=== PATIENT | male | born 1985 | race Caucasian/White ===

== ENCOUNTER 2016-12-26 07:19 | Emergency (ER) | payer OTHER ==
--- NOTE | 2016-12-26 07:27 | EDM.PDOC ---
ED HPI GENERAL MEDICAL PROBLEM - General Chief Complaint: ENT Problem Stated Complaint: TOOTH PAIN Time Seen by Provider: 12/26/16 07:25 - History of Present Illness INITIAL COMMENTS - FREE TEXT/NARRATIVE: HISTORY AND PHYSICAL: History of present illness: Patient 31-year-old white male presents with a concern of dental pain and swelling this is his left lower molar he denies other concern there's been no fever no chills no trouble breathing he's had similar complaints in the past and has sought dental care he is planning on definitive evaluation treatment with dentist this week Review of systems: As per history of present illness and below otherwise all systems reviewed and negative. Past medical history: As per history of present illness and as reviewed below otherwise noncontributory. Surgical history: As per history of present illness and as reviewed below otherwise noncontributory. Social history: No reported history of drug or alcohol abuse. Family history: As per history of present illness and as reviewed below otherwise noncontributory. Physical exam: HEENT: Atraumatic, normocephalic, pupils reactive, negative for conjunctival pallor or scleral icterus, mucous membranes moist, throat clear, neck supple, nontender, trachea midline. Multiple dental caries noted left mandibular swelling noted in the region of the left lower molar Lungs: Clear to auscultation, breath sounds equal bilaterally, chest nontender. Heart: S1S2, regular, negative for clicks, rubs, or JVD. Abdomen: Soft, nondistended, nontender. Negative for masses or hepatosplenomegaly. Negative for costovertebral tenderness. Pelvis: Stable nontender. Genitourinary: Deferred. Rectal: Deferred. Extremities: Atraumatic, negative for cords or calf pain. Neurovascular unremarkable. Neuro: Awake, alert, oriented. Cranial nerves II through XII unremarkable. Cerebellum unremarkable. Motor and sensory unremarkable throughout. Exam nonfocal. Diagnostics: None Therapeutics: None Impression: #1 dentalgia #2 dental abscess #3 dental caries Definitive disposition and diagnosis as appropriate pending reevaluation and review of above. - Related Data Allergies Allergy/AdvReac Type Severity Reaction Status Date / Time No Known Allergies Allergy Verified 12/26/16 07:23 Home Meds: Home Meds . [No Known Home Meds] 12/05/15 [History] Past Medical History - Past Health History Medical/Surgical History: Denies Medical/Surgical History HEENT History: Reports: None Cardiovascular History: Reports: None Respiratory History: Reports: Bronchitis, Recurrent Gastrointestinal History: Reports: None Genitourinary History: Reports: None Musculoskeletal History: Reports: None Neurological History: Reports: Other (See Below) Other Neuro History: bells palsy Psychiatric History: Reports: None Endocrine/Metabolic History: Reports: None Hematologic History: Reports: None Immunologic History: Reports: None Dermatologic History: Reports: None - Infectious Disease History Infectious Disease History: Reports: None - Past Surgical History Head Surgeries/Procedures: Reports: None HEENT Surgical History: Reports: None Cardiovascular Surgical History: Reports: None Respiratory Surgical History: Reports: None GI Surgical History: Reports: None Male Surgical History: Reports: None Musculoskeletal Surgical History: Reports: None Social & Family History - Tobacco Use Smoking Status *Q: Current Every Day Smoker Years of Tobacco use: 11 Packs/Tins Daily: 1 - Caffeine Use Caffeine Use: Reports: None - Alcohol Use Days Per Week of Alcohol Use: 2 Number of Drinks Per Day: 5 Total Drinks Per Week: 10 - Recreational Drug Use Recreational Drug Use: No ED ROS GENERAL - Review of Systems Review Of Systems: ROS reveals no pertinent complaints other than HPI. ED EXAM, GENERAL - Physical Exam Exam: See Below (Dictated) Departure - Departure Time of Disposition: 07:26 Disposition: Home, Self-Care 01 Condition: Good Clinical Impression: Dental caries, Dental abscess, Dentalgia - Discharge Information Referrals: PCP,None [Primary Care Provider] - Additional Instructions: The following information is given to patients seen in the emergency department who are being discharged to home. This information is to outline your options for follow-up care. We provide all patients seen in our emergency department with a follow-up referral. The need for follow-up, as well as the timing and circumstances, are variable depending upon the specifics of your emergency department visit. If you don't have a primary care physician on staff, we will provide you with a referral. We always advise you to contact your personal physician following an emergency department visit to inform them of the circumstance of the visit and for follow-up with them and/or the need for any referrals to a consulting specialist. The emergency department will also refer you to a specialist when appropriate. This referral assures that you have the opportunity for followup care with a specialist. All of these measure are taken in an effort to provide you with optimal care, which includes your followup. Under all circumstances we always encourage you to contact your private physician who remains a resource for coordinating your care. When calling for followup care, please make the office aware that this follow-up is from your recent emergency room visit. If for any reason you are refused follow-up, please contact the [facility] emergency department at and asked to speak to the emergency department charge nurse. Pen-Vee K as prescribed Motrin/Tylenol as directed follow-up dentist as discussed and return as needed as discussed
[2016-12-26 07:29] VITALS: BP 139/78
== END 2016-12-26 07:40 | disposition home or self-care (01) ==
LOC: MW.ED 07:19
DX: K04.7 Periapical abscess without sinus (principal); K02.9 Dental caries, unspecified; F17.210 Nicotine dependence, cigarettes, uncomplicated
CPT/HCPCS: 99282

== ENCOUNTER 2017-01-24 01:06 | Emergency (ER) | payer OTHER ==
[2017-01-24] MEDS ORDERED: Aspirin 81 MG Tab.Chew PO ONE (01:36)
--- NOTE | 2017-01-24 01:41 | EDM.PDOC ---
ED HPI GENERAL MEDICAL PROBLEM - General Chief Complaint: Chest Pain Stated Complaint: CHEST PAIN; LEFT ARM NUMB Time Seen by Provider: 01/24/17 01:28 - History of Present Illness INITIAL COMMENTS - FREE TEXT/NARRATIVE: HISTORY AND PHYSICAL: History of present illness: The patient is a 31-year-old male with no stated medical problems who says that he ate a normal day today and ate chili about 6 or 7 PM and then went to bed and suddenly woke up at about midnight with a fullness and chest pressure in the middle lower part of his sternum that he rates as 7/10. He initially told the nurse it was a 10 over 10 when I gave him my pain scale he now rates it as a 7/10. At that point he was not nauseated he had no stomach pain he had no diaphoresis or shortness of breath. The pain did not radiate and he had no numbness or tingling in his extremities at that time. He says he took Tums and went back to sleep but couldn't sleep and woke with similar pain area he's had it constantly since midnight, 1.5 hours. He says that in that last hour he has had some numbness and tingling that was at his left upper shoulder area as well as his left hand but not his elbow or forearm area. The tingling and numbness has since subsided and he does not have any weakness nor did he have any weakness in that arm. There was no pain in the left upper extremity just the tingling in the skip distribution as described above. Patient currently states his pain is a 1/10 and he did not take any other medications. The patient does smoke cigarettes but denies drug use and only drinks rarely. Patient has no GI cardiac or pulmonary history and he has no significant family history other than a mother who has atrial fibrillation. He does not know his cholesterol lipid panel and does not have a provider. Patient denies any recent upper respiratory symptoms and has had no trauma. Patient denies any history of chest pain with activities in the past and he has no leg pain swelling or asymmetry. Patient does admit to me that he has had more issues with his "heartburn" that he gets with pizza and other foods and it has been occurring more with certain food triggers. He has not sought evaluation of that. The patient denies any headache or neck pain and has no history of head or neck problems. Review of systems: As per history of present illness and below otherwise all systems reviewed and negative. Past medical history: As per history of present illness and as reviewed below otherwise noncontributory. Surgical history: As per history of present illness and as reviewed below otherwise noncontributory. Social history: No reported history of drug or alcohol abuse. Family history: As per history of present illness and as reviewed below otherwise noncontributory. Physical exam: Gen.: Well-developed well-nourished man who is nontoxic and speaking clearly and easily in the ED. He is mildly overweight and vitals of been reviewed by me HEENT: Atraumatic, normocephalic, pupils reactive, negative for conjunctival pallor or scleral icterus, mucous membranes moist, throat clear, neck supple, nontender, trachea midline. Lungs: Clear to auscultation, breath sounds equal bilaterally, chest nontender. Heart: S1S2, regular, negative for clicks, rubs, or JVD. Abdomen: Soft, nondistended, nontender. Negative for masses or hepatosplenomegaly. Negative for costovertebral tenderness. Pelvis: Stable nontender. Genitourinary: Deferred. Rectal: Deferred. Extremities: Atraumatic, negative for cords or calf pain. Neurovascular unremarkable. No pedal edema or leg asymmetry Neuro: Awake, alert, oriented. Cranial nerves II through XII unremarkable. Cerebellum unremarkable. Motor and sensory unremarkable throughout. Exam nonfocal. Diagnostics: EKG chest x-ray CBC CMP INR troponin Therapeutics: IV O2 monitor aspirin Patient is aware of all testing results and I have advised him for 23 hour observation for serial EKGs enzymes and cardiac monitoring and he defers that at this time. He understands the risks and accepts them and would like to follow -up in our clinic. I will give him information for that. Impression: Atypical chest pain resolved, nonspecific skip distribution paresthesia of left upper extremity resolved Definitive disposition and diagnosis as appropriate pending reevaluation and review of above. Left Upper Chest Pain Score (Numeric/FACES): 5 - Related Data Allergies Allergy/AdvReac Type Severity Reaction Status Date / Time No Known Allergies Allergy Verified 12/26/16 07:23 Home Meds: Home Meds . [No Known Home Meds] 12/05/15 [History] Past Medical History - Past Health History Medical/Surgical History: Denies Medical/Surgical History HEENT History: Reports: None Cardiovascular History: Reports: Other (See Below) Other Cardiovascular History: "chest pain" Respiratory History: Reports: Bronchitis, Recurrent Gastrointestinal History: Reports: None Genitourinary History: Reports: None Musculoskeletal History: Reports: None Neurological History: Reports: Other (See Below) Other Neuro History: bells palsy Psychiatric History: Reports: None Endocrine/Metabolic History: Reports: None Hematologic History: Reports: None Immunologic History: Reports: None Dermatologic History: Reports: None - Infectious Disease History Infectious Disease History: Reports: None - Past Surgical History Head Surgeries/Procedures: Reports: None HEENT Surgical History: Reports: None Cardiovascular Surgical History: Reports: None Respiratory Surgical History: Reports: None GI Surgical History: Reports: None Male Surgical History: Reports: None Musculoskeletal Surgical History: Reports: None Social & Family History - Tobacco Use Smoking Status *Q: Current Every Day Smoker Years of Tobacco use: 12 Packs/Tins Daily: 0.7 - Caffeine Use Caffeine Use: Reports: Coffee - Alcohol Use Days Per Week of Alcohol Use: 2 Number of Drinks Per Day: 5 Total Drinks Per Week: 10 - Recreational Drug Use Recreational Drug Use: Yes Drug Use in Last 12 Months: No Recreational Drug Type: Reports: Marijuana/Hashish Recreational Drug Use Frequency: Not Used In Over 1 Year ED ROS GENERAL - Review of Systems Review Of Systems: ROS reveals no pertinent complaints other than HPI. ED EXAM, GENERAL - Physical Exam Exam: See Below (see dictation) Course - Vital Signs Last Recorded V/S: Last Vital Signs Temp 36.2 C 01/24/17 01:17 Pulse 85 01/24/17 01:17 Resp 16 01/24/17 01:17 BP 144/95 H 01/24/17 01:17 Pulse Ox 99 01/24/17 01:17 - Orders/Labs/Meds Orders: Active Orders 24 hr Category Date Time Status EKG 12 Lead [EKG Documentation Completion] [RC] STAT Care 01/24/17 01:19 Active CXR [Chest 1V Frontal] [CR] Stat Exams 01/24/17 01:21 Taken Labs: Laboratory Tests 01/24/17 01/24/17 01/24/17 Range/Units 01:13 01:13 01:13 WBC 9.23 (4.0-11.0) K/uL RBC 5.10 (4.50-5.90) M/uL Hgb 16.0 (13.0-17.0) g/dL Hct 46.1 (38.0-50.0) % MCV 90.4 (80.0-98.0) fL MCH 31.4 (27.0-32.0) pg MCHC 34.7 (31.0-37.0) g/dL RDW Std Deviation 40.6 (28.0-62.0) fl RDW Coeff of Ran 13 (11.0-15.0) % Plt Count 180 (150-400) K/uL MPV 12.50 H (7.40-12.00) fL Neut % (Auto) 45.6 L (48.0-80.0) % Lymph % (Auto) 37.8 (16.0-40.0) % [place] % (Auto) 11.6 (0.0-15.0) % Eos % (Auto) 4.8 (0.0-7.0) % Baso % (Auto) 0.2 (0.0-1.5) % Neut # (Auto) 4.2 (1.4-5.7) K/uL Lymph # (Auto) 3.5 H (0.6-2.4) K/uL [place] # (Auto) 1.1 H (0.0-0.8) K/uL Eos # (Auto) 0.4 (0.0-0.7) K/uL Baso # (Auto) 0.0 (0.0-0.1) K/uL INR 0.94 (0.86-1.11) Sodium 140 (136-146) mmol/L Potassium 4.1 (3.5-5.1) mmol/L Chloride 110 (98-110) mmol/L Carbon Dioxide 20 L (21-31) mmol/L BUN 13 (6.0-23.0) mg/dL Creatinine 1.1 (0.6-1.5) mg/dL Est Cr Clr Drug Dosing 106.80 mL/min Estimated GFR (MDRD) > 60.0 ml/min Glucose 114 H (60-110) mg/dL Calcium 9.2 (8.8-10.8) mg/dL Total Bilirubin 0.3 (0.1-1.5) mg/dL AST 29 (5-40) IU/L ALT 43 (8-54) IU/L Alkaline Phosphatase 76 (40-150) Troponin I (0.0-0.29) NG/ML Total Protein 7.1 (6.0-8.0) g/dL Albumin 4.0 (3.5-5.0) g/dL Globulin 3.1 (2.0-3.5) g/dL Albumin/Globulin Ratio 1.3 (1.3-2.8) 01/24/17 Range/Units 01:13 WBC (4.0-11.0) K/uL RBC (4.50-5.90) M/uL Hgb (13.0-17.0) g/dL Hct (38.0-50.0) % MCV (80.0-98.0) fL MCH (27.0-32.0) pg MCHC (31.0-37.0) g/dL RDW Std Deviation (28.0-62.0) fl RDW Coeff of Ran (11.0-15.0) % Plt Count (150-400) K/uL MPV (7.40-12.00) fL Neut % (Auto) (48.0-80.0) % Lymph % (Auto) (16.0-40.0) % [place] % (Auto) (0.0-15.0) % Eos % (Auto) (0.0-7.0) % Baso % (Auto) (0.0-1.5) % Neut # (Auto) (1.4-5.7) K/uL Lymph # (Auto) (0.6-2.4) K/uL [place] # (Auto) (0.0-0.8) K/uL Eos # (Auto) (0.0-0.7) K/uL Baso # (Auto) (0.0-0.1) K/uL INR (0.86-1.11) Sodium (136-146) mmol/L Potassium (3.5-5.1) mmol/L Chloride (98-110) mmol/L Carbon Dioxide (21-31) mmol/L BUN (6.0-23.0) mg/dL Creatinine (0.6-1.5) mg/dL Est Cr Clr Drug Dosing mL/min Estimated GFR (MDRD) ml/min Glucose (60-110) mg/dL Calcium (8.8-10.8) mg/dL Total Bilirubin (0.1-1.5) mg/dL AST (5-40) IU/L ALT (8-54) IU/L Alkaline Phosphatase (40-150) Troponin I < 0.10 (0.0-0.29) NG/ML Total Protein (6.0-8.0) g/dL Albumin (3.5-5.0) g/dL Globulin (2.0-3.5) g/dL Albumin/Globulin Ratio (1.3-2.8) Meds: Medications Discontinued Medications Generic Name Dose Route Start Last Admin Trade Name Freq PRN Reason Stop Dose Admin Aspirin 324 mg 01/24/17 01:36 Aspirin PO 01/24/17 01:37 ONETIME ONE Departure - Departure Time of Disposition: 02:11 Disposition: Home, Self-Care 01 Condition: Good Clinical Impression: Paresthesia Chest pain Qualifiers: Chest pain type: other chest pain Qualified Code(s): R07.89 - Other chest pain ; R07.8 - Other chest pain - Discharge Information Referrals: PCP,None [Primary Care Provider] - Forms: ED Department Discharge Additional Instructions: The following information is given to patients seen in the emergency department who are being discharged to home. This information is to outline your options for follow-up care. We provide all patients seen in our emergency department with a follow-up referral. The need for follow-up, as well as the timing and circumstances, are variable depending upon the specifics of your emergency department visit. If you don't have a primary care physician on staff, we will provide you with a referral. We always advise you to contact your personal physician following an emergency department visit to inform them of the circumstance of the visit and for follow-up with them and/or the need for any referrals to a consulting specialist. The emergency department will also refer you to a specialist when appropriate. This referral assures that you have the opportunity for followup care with a specialist. All of these measure are taken in an effort to provide you with optimal care, which includes your followup. Under all circumstances we always encourage you to contact your private physician who remains a resource for coordinating your care. When calling for followup care, please make the office aware that this follow-up is from your recent emergency room visit. If for any reason you are refused follow-up, please contact the [facility] emergency department at and ask to speak to the emergency department charge nurse. [facility] Primary care- Internal Medicine and Family [address] [address] Please call the clinic at 8 AM in the morning to ask for an expedited ER appointment as we discussed. Please try to monitor your food intake avoiding fatty foods and spicy foods fast foods as we discussed. Decrease caffeine intake. Please return to ER as needed and as we discussed. Please take a 325 enteric-coated aspirin every day until you're followed up in the clinic. - My Orders Last 24 Hours: My Active Orders 01/24/17 01:19 EKG 12 Lead [EKG Documentation Completion] [RC] STAT 01/24/17 01:21 CXR [Chest 1V Frontal] [CR] Stat - Assessment/Plan Last 24 Hours: My Active Orders 01/24/17 01:19 EKG 12 Lead [EKG Documentation Completion] [RC] STAT 01/24/17 01:21 CXR [Chest 1V Frontal] [CR] Stat
[2017-01-24 01:44] LABS: CHLORIDE,CL 110 mmol/L (98-110); SODIUM,NA 140 mmol/L (136-146)
[2017-01-24 02:14] VITALS: BP 151/103
--- NOTE | 2017-01-24 14:34 | CR ---
EXAM DATE: 01/24/17 PATIENT'S AGE: 31 Patient: KENRICK HERNANDEZ Facility: [place], [place] Site . Site : 1985 Study: XRay Chest [id number] 1:35:28 AM Ordering Physician: Doctor Valdez Final Report: INDICATION: Chest pain TECHNIQUE: Chest radiograph 1 views COMPARISON: 04/03/2016 FINDINGS: Cardiovascular and mediastinum: The cardiac silhouette is normal in appearance and size. Mediastinum is within normal limits. Lungs and pleural spaces: Both lungs are unremarkable in appearance. No sign of pleural effusion. No pneumothorax is seen. Bones and soft tissues: No significant findings. IMPRESSION: 1. No acute cardiopulmonary disease seen. Dictated by: Matt Rose MD @ 01/24/2017 01:41:16 (Electronic Signature) Report Signed by Proxy. [facility]ICH[facility] NO[facility]IAL HOSPITALMathew
== END 2017-01-24 02:21 | disposition home or self-care (01) ==
LOC: MW.ED 01:06
DX: R07.89 Other chest pain (principal); R20.2 Paresthesia of skin; F17.210 Nicotine dependence, cigarettes, uncomplicated
CPT/HCPCS: 71010; 80053; 84484; 85025; 85610; 93005; 99285; A9270; 99284

== ENCOUNTER 2017-07-17 00:34 | Emergency (ER) | payer OTHER ==
[2017-07-17] MEDS ORDERED: Albuterol/Ipratropium 3.0-0.5 MG/3 ML Neb Soln NEB ONE (00:56)
--- NOTE | 2017-07-17 01:11 | EDM.PDOC ---
ED HPI GENERAL MEDICAL PROBLEM - General Chief Complaint: Respiratory Problem Stated Complaint: PT HAS COUGH Time Seen by Provider: 07/17/17 01:10 Source of Information: Reports: Patient - History of Present Illness INITIAL COMMENTS - FREE TEXT/NARRATIVE: HISTORY AND PHYSICAL: History of present illness: [Patient presents with one week of cough increasing in severity cough is keeping him awake at night no fever nausea vomiting chills sweats some sore throat he does have smoking history half pack daily since a teenager no fever nausea vomiting chills sweats ] Review of systems: As per history of present illness and below otherwise all systems reviewed and negative. Past medical history: As per history of present illness and as reviewed below otherwise noncontributory. Surgical history: As per history of present illness and as reviewed below otherwise noncontributory. Social history: No reported history of drug or alcohol abuse. Family history: As per history of present illness and as reviewed below otherwise noncontributory. Physical exam: HEENT: Atraumatic, normocephalic, pupils reactive, negative for conjunctival pallor or scleral icterus, mucous membranes moist, throat clear, neck supple, nontender, trachea midline. Lungs: Clear to auscultation, breath sounds equal bilaterally, chest nontender. Heart: S1S2, regular, negative for clicks, rubs, or JVD. Abdomen: Soft, nondistended, nontender. Negative for masses or hepatosplenomegaly. Negative for costovertebral tenderness. Pelvis: Stable nontender. Genitourinary: Deferred. Rectal: Deferred. Extremities: Atraumatic, negative for cords or calf pain. Neurovascular unremarkable. Neuro: Awake, alert, oriented. Cranial nerves II through XII unremarkable. Cerebellum unremarkable. Motor and sensory unremarkable throughout. Exam nonfocal. Diagnostics: [Chest 2 views Influenza/strep ] Therapeutics: [DuoNeb ] Z-Javier 250 mg HFA Phenergan with codeine 240 mL Impression: [ acute bronchitis ] Definitive disposition and diagnosis as appropriate pending reevaluation and review of above. cough Pain Score (Numeric/FACES): 2 - Related Data Allergies Allergy/AdvReac Type Severity Reaction Status Date / Time No Known Allergies Allergy Verified 07/17/17 00:43 Home Meds: Home Meds . [No Known Home Meds] 12/05/15 [History] Past Medical History - Past Health History Medical/Surgical History: Denies Medical/Surgical History HEENT History: Reports: None Cardiovascular History: Reports: Other (See Below) Other Cardiovascular History: "chest pain" Respiratory History: Reports: Bronchitis, Recurrent Gastrointestinal History: Reports: None Genitourinary History: Reports: None Musculoskeletal History: Reports: None Neurological History: Reports: Other (See Below) Other Neuro History: bells palsy Psychiatric History: Reports: None Endocrine/Metabolic History: Reports: None Hematologic History: Reports: None Immunologic History: Reports: None Dermatologic History: Reports: None - Infectious Disease History Infectious Disease History: Reports: None - Past Surgical History Head Surgeries/Procedures: Reports: None HEENT Surgical History: Reports: None Cardiovascular Surgical History: Reports: None Respiratory Surgical History: Reports: None GI Surgical History: Reports: None Male Surgical History: Reports: None Musculoskeletal Surgical History: Reports: None Social & Family History - Family History Family Medical History: Noncontributory - Tobacco Use Smoking Status *Q: Current Every Day Smoker Years of Tobacco use: 10 Packs/Tins Daily: 0.5 - Caffeine Use Caffeine Use: Reports: Coffee - Alcohol Use Days Per Week of Alcohol Use: 2 Number of Drinks Per Day: 5 Total Drinks Per Week: 10 - Recreational Drug Use Recreational Drug Use: No Drug Use in Last 12 Months: No Recreational Drug Type: Reports: Marijuana/Hashish Recreational Drug Use Frequency: Not Used In Over 1 Year ED ROS GENERAL - Review of Systems Review Of Systems: ROS reveals no pertinent complaints other than HPI. ED EXAM, GENERAL - Physical Exam Exam: See Below Course - Vital Signs Last Recorded V/S: Last Vital Signs Temp 99.2 F 07/17/17 00:44 Pulse 63 07/17/17 00:44 Resp 18 07/17/17 00:44 BP 123/63 07/17/17 00:44 Pulse Ox 99 07/17/17 00:44 - Orders/Labs/Meds Orders: Active Orders 24 hr Category Date Time Status RT Aerosol Therapy [RC] ASDIRECTED Care 07/17/17 00:56 Active Chest 2V [CR] Stat Exams 07/17/17 00:56 Taken CULTURE STREP A CONFIRMATION [RM] Stat Lab 07/17/17 01:00 Results INFLUENZA A+B AG SCREEN [] Stat Lab 07/17/17 01:00 Ordered STREP SCRN A RAPID W CULT CONF [] Stat Lab 07/17/17 01:00 Ordered Meds: Medications Discontinued Medications Generic Name Dose Route Start Last Admin Trade Name Niya PRN Reason Stop Dose Admin Albuterol/Ipratropium 3 ml 07/17/17 00:56 07/17/17 01:01 Duoneb 3.0-0.5 Mg/3 Ml NEB 07/17/17 00:57 3 ml ONETIME ONE Administration Departure - Departure Time of Disposition: 01:56 Disposition: Home, Self-Care 01 Condition: Good Clinical Impression: Acute bronchitis - Discharge Information Referrals: PCP,None [Primary Care Provider] - Forms: ED Department Discharge Additional Instructions: The following information is given to patients seen in the emergency department who are being discharged to home. This information is to outline your options for follow-up care. We provide all patients seen in our emergency department with a follow-up referral. The need for follow-up, as well as the timing and circumstances, are variable depending upon the specifics of your emergency department visit. If you don't have a primary care physician on staff, we will provide you with a referral. We always advise you to contact your personal physician following an emergency department visit to inform them of the circumstance of the visit and for follow-up with them and/or the need for any referrals to a consulting specialist. The emergency department will also refer you to a specialist when appropriate. This referral assures that you have the opportunity for follow-up care with a specialist. All of these measure are taken in an effort to provide you with optimal care, which includes your follow-up. Under all circumstances we always encourage you to contact your private physician who remains a resource for coordinating your care. When calling for follow-up care, please make the office aware that this follow-up is from your recent emergency room visit. If for any reason you are refused follow-up, please contact the [facility] emergency department at and asked to speak to the emergency department charge nurse. - My Orders Last 24 Hours: My Active Orders 07/17/17 00:56 RT Aerosol Therapy [RC] ASDIRECTED Chest 2V [CR] Stat 07/17/17 01:00 CULTURE STREP A CONFIRMATION [RM] Stat INFLUENZA A+B AG SCREEN [] Stat STREP SCRN A RAPID W CULT CONF [RM] Stat - Assessment/Plan Last 24 Hours: My Active Orders 07/17/17 00:56 RT Aerosol Therapy [RC] ASDIRECTED Chest 2V [CR] Stat 07/17/17 01:00 CULTURE STREP A CONFIRMATION [] Stat INFLUENZA A+B AG SCREEN [] Stat STREP SCRN A RAPID W CULT CONF [] Stat
[2017-07-17 02:11] VITALS: BP 112/76
--- NOTE | 2017-07-18 13:43 | CR ---
EXAM DATE: 07/17/17 PATIENT'S AGE: 31 Patient: KENRICK HERNANDEZ Facility: [place], [place] Site . Site : 1985 Study: XRay Chest [id number]/8/2018 1:33:20 AM Ordering Physician: Doctor Valdez Final Report: INDICATION: Shortness of breath, chest pain. Smoker. TECHNIQUE: Chest radiograph 2 views COMPARISON: 01/24/2017. FINDINGS: Cardiovascular and mediastinum: The heart silhouette is normal in size and morphology. The mediastinum is normal in appearance. Lungs and pleural spaces: Both lungs are unremarkable in appearance. No sign of pleural effusion seen. No pneumothorax is identified. Bones and soft tissues: No significant findings. IMPRESSION: 1. No acute cardiopulmonary disease is seen. Dictated by Ronni Romero MD @ 07/17/2017 1:34:57 AM Dictated by: Ronni Romero MD @ 07/17/2017 01:35:03 (Electronic Signature) Report Signed by Proxy. MARVIN
== END 2017-07-17 02:00 | disposition home or self-care (01) ==
LOC: MW.ED 00:34
DX: J20.9 Acute bronchitis, unspecified (principal); F17.210 Nicotine dependence, cigarettes, uncomplicated
CPT/HCPCS: 71046; 71046-26; 87081; 87804; 87880; 94640; 99283; 99284-25

== ENCOUNTER 2017-12-26 14:32 | Emergency (ER) | payer OTHER ==
[2017-12-26 14:51] VITALS: BP 132/84
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
--- NOTE | 2017-12-26 15:20 | CR ---
EXAMINATION: Lumbar spine HISTORY: Pain COMPARISON: None TECHNIQUE: AP and lateral views FINDINGS: The lumbar spinal alignment is normal. The vertebral body heights and disc spaces appear we ll-maintained. There is no fracture or acute osseous abnormality. Bone mineralization is normal. Ther e is hemisacralization of L5 on the right. SI joints are symmetric. IMPRESSION: No acute osseous abnormality identified.
== END 2017-12-26 16:04 | disposition home or self-care (01) ==
LOC: MW.ED 14:32
DX: S39.012A Strain of muscle, fascia and tendon of lower back, initial encounter (principal); F17.210 Nicotine dependence, cigarettes, uncomplicated; V87.8XXA Person injured in other specified noncollision transport accidents involving motor vehicle (traffic), initial encounter
CPT/HCPCS: 72100; 72100-26; 99283

== ENCOUNTER 2018-05-13 20:30 | Emergency (ER) | payer OTHER ==
[2018-05-13] MEDS ORDERED: methylPREDNISolone Sodium Succinate 125 MG/2 ML SDV IM ONE (20:48)
--- NOTE | 2018-05-13 20:53 | EDM.PDOC ---
ED HPI GENERAL MEDICAL PROBLEM - General Chief Complaint: General Stated Complaint: FACIAL NUMBNESS Time Seen by Provider: 05/13/18 20:40 Source of Information: Reports: Patient History Limitations: Reports: No Limitations - History of Present Illness INITIAL COMMENTS - FREE TEXT/NARRATIVE: HISTORY AND PHYSICAL: History of present illness: Patient is a 32-year-old male who presents to the clinic today with facial weakness/numbness. 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 He states that his symptoms are the same as when he had Eldridge's palsy before. He states that he is unable to move the right half of his face and that the sensation is altered. He states he did have an upper respiratory infection a week or so ago. He states that the symptoms have completely resolved. In February, patient did have a v-fib cardiac arrest event which involved CPR. At this time the cause of arrest remains unknown despite multiple follow-ups at [facility]. He states he is in the process of getting a defibrillator but does not have one. He states he has anxiety that is Eldridge's palsy may trigger this event which brought him into the ED today. He denies any visual changes, arm or leg weakness, slurred speech, fever, chills , chest pain, syncope or near syncope. He further denies any difficulties breathing, palpitations, or any cardiovascular or respiratory complaints. Denies any abdominal pain, nausea, vomiting, diarrhea or constipation. Denies any urinary or fecal incontinence. Denies any numbness or tingling to his distal extremities. Denies any other health concerns. Review of systems: As per history of present illness and below otherwise all systems reviewed and negative. Past medical history: As per history of present illness and as reviewed below otherwise noncontributory. Surgical history: As per history of present illness and as reviewed below otherwise noncontributory. Social history: See social history for further information Family history: As per history of present illness and as reviewed below otherwise noncontributory. Physical exam: General: Patient is alert, oriented, and in no acute distress. He is lying comfortably on exam table. HEENT: The right facial muscles are unable to be moved. Patient is not able to smile on the right half of his face, close his eye on the right side of his face , and the right side of his eyebrow will not move. No tongue deviation. No temporal or mastoid tenderness, atraumatic, normocephalic, pupils equal and reactive bilaterally, negative for conjunctival pallor or scleral icterus, mucous membranes moist, TMs normal bilaterally, throat clear, neck supple, nontender, trachea midline. No drooling or trismus noted. No meningeal signs. No hot potato voice noted. Lungs: Clear to auscultation, breath sounds equal bilaterally, chest nontender. Heart: S1S2, regular rate and rhythm without overt murmur Abdomen: Soft, nondistended, nontender. Negative for masses or hepatosplenomegaly. Negative for costovertebral tenderness. Pelvis: Stable nontender. Genitourinary: Deferred. Rectal: Deferred. Skin: Intact, warm, dry. No lesions or rashes noted. Extremities: Atraumatic, moves all extremities without difficulty or deficits. He has full strength to upper and lower extremities. Negative for cords or calf pain. Neurovascular unremarkable. Neuro: Awake, alert, oriented. Cranial nerve VII is affected as the patient is not able to control the facial expressions on the right side of his face with altered sensation. All other cranial nerves were assessed and unremarkable. Cerebellum unremarkable. Motor and sensory unremarkable throughout. Exam nonfocal. Notes: Patients GCS is 15 and NIH stroke score of 0. Had a conversation with patient about Eldridge's palsy versus stroke. Patient states that he is not overly concerned about stroke at this time but desires head CT for reaffirmation. Discussed with patient a head CT would be needed to rule out an acute stroke. Patient expresses his concern to be more related to his unknown cause for cardiac arrest a few months ago. We will proceed with head CT. We will also treat for Eldridge's palsy. Head CT is unremarkable. Vital signs remain stable. Continues to have no neurological deficits noted. We discussed the need for appropriate follow-up and management with his primary care provider. Medication education was reviewed and discussed. Signs and symptoms that would prompt him to return to the ER were reviewed and discussed. He is agreeable to plan of care. Denies any further questions or concerns at this time. Diagnostics: Head CT Therapeutics: Valcyclovir, Solumedrol Prescription: Valcyclovir Prednisone Impression: [place] Palsy Plan: 1. Head CT is shows no acute findings. 2. Please take the prednisone taper as directed. Valacyclovir as directed. 3. During the daytime he may want to use protective glasses and use artificial tears to protect the eye. Overnight use an ophthalmic lubricant applied and gently tape the eyelid closed to avoid injury. 4. Follow up with your primary care provider on Tuesday. Return to the ED as needed and as discussed. Definitive disposition and diagnosis as appropriate pending reevaluation and review of above. Onset: Today - Related Data Allergies Allergy/AdvReac Type Severity Reaction Status Date / Time No Known Allergies Allergy Verified 05/13/18 20:39 Home Meds: Home Meds . [No Known Home Meds] 05/13/18 [History] Past Medical History - Past Health History Medical/Surgical History: Denies Medical/Surgical History HEENT History: Reports: None Cardiovascular History: Reports: Other (See Below) Other Cardiovascular History: Cardiac arrest 2017 Respiratory History: Reports: Bronchitis, Recurrent Gastrointestinal History: Reports: None Genitourinary History: Reports: None Musculoskeletal History: Reports: None Neurological History: Reports: Other (See Below) Other Neuro History: bells palsy bilateral face Psychiatric History: Reports: None Endocrine/Metabolic History: Reports: None Hematologic History: Reports: None Immunologic History: Reports: None Oncologic (Cancer) History: Reports: None Dermatologic History: Reports: None - Infectious Disease History Infectious Disease History: Reports: None - Past Surgical History Head Surgeries/Procedures: Reports: None HEENT Surgical History: Reports: None Cardiovascular Surgical History: Reports: None Respiratory Surgical History: Reports: None GI Surgical History: Reports: None Male Surgical History: Reports: None Musculoskeletal Surgical History: Reports: None Oncologic Surgical History: Reports: None Social & Family History - Family History Family Medical History: Noncontributory - Tobacco Use Smoking Status *Q: Current Every Day Smoker Years of Tobacco use: 13 Packs/Tins Daily: 0.5 - Caffeine Use Caffeine Use: Reports: Coffee - Recreational Drug Use Recreational Drug Use: No ED ROS GENERAL - Review of Systems Review Of Systems: ROS reveals no pertinent complaints other than HPI. ED EXAM, GENERAL - Physical Exam Exam: See Below (See dictation) Course - Vital Signs Last Recorded V/S: Last Vital Signs Temp 97.8 F 05/13/18 20:36 Pulse 84 05/13/18 20:36 Resp 18 05/13/18 20:36 BP 137/89 05/13/18 20:36 Pulse Ox 99 05/13/18 20:36 - Orders/Labs/Meds Meds: Medications Discontinued Medications Generic Name Dose Route Start Last Admin Trade Name Niya PADILLA Reason Stop Dose Admin Methylprednisolone Sodium Succinate 125 mg 05/13/18 20:48 05/13/18 21:21 Solu-Medrol IM 05/13/18 20:49 Not Given ONETIME ONE Methylprednisolone Sodium Succinate 125 mg 05/13/18 21:19 05/13/18 21:21 Solu-Medrol IVPUSH 05/13/18 21:20 125 mg ONETIME ONE Administration Valacyclovir HCl 500 mg 05/13/18 20:58 05/13/18 21:13 Valtrex PO 05/13/18 20:59 500 mg ONETIME ONE Administration Departure - Departure Time of Disposition: 21:41 Disposition: Home, Self-Care 01 Clinical Impression: Eldridge palsy - Discharge Information Instructions: Eldridge Palsy, Adult Referrals: PCP,None [Primary Care Provider] - Forms: ED Department Discharge Additional Instructions: The following information is given to patients seen in the emergency department who are being discharged to home. This information is to outline your options for follow-up care. We provide all patients seen in our emergency department with a follow-up referral. The need for follow-up, as well as the timing and circumstances, are variable depending upon the specifics of your emergency department visit. If you don't have a primary care physician on staff, we will provide you with a referral. We always advise you to contact your personal physician following an emergency department visit to inform them of the circumstance of the visit and for follow-up with them and/or the need for any referrals to a consulting specialist. The emergency department will also refer you to a specialist when appropriate. This referral assures that you have the opportunity for follow-up care with a specialist. All of these measure are taken in an effort to provide you with optimal care, which includes your follow-up. Under all circumstances we always encourage you to contact your private physician who remains a resource for coordinating your care. When calling for follow-up care, please make the office aware that this follow-up is from your recent emergency room visit. If for any reason you are refused follow-up, please contact the [facility] Emergency Department at and asked to speak to the emergency department charge nurse. JASON [facility] Primary Care [address] [place] [address] [facility] [address] [place] [id number] JASON [facility] Specialty Care - Neurology Professional Building [address] [place] [address] is shows no acute findings. 2. Please take the prednisone taper as directed. Valacyclovir as directed. 3. During the daytime he may want to use protective glasses and use artificial tears to protect the eye. Overnight use an ophthalmic lubricant applied and gently tape the eyelid closed to avoid injury. 4. Follow up with your primary care provider on Tuesday. Return to the ED as needed and as discussed.
[2018-05-13] MEDS ORDERED: valACYclovir 500 MG Tab PO ONE (20:58)
[2018-05-13] MEDS ORDERED: methylPREDNISolone Sodium Succinate 125 MG/2 ML SDV IVPUSH ONE (21:19)
--- NOTE | 2018-05-13 21:39 | CT ---
INDICATION: Facial numbness TECHNIQUE: CT head without contrast. COMPARISON: None. FINDINGS: CSF spaces: Within normal limits for age. Brain parenchyma: The richardson-white differentiation is normal. No sign of mass, hemorrhage, or midline shift. Skull base and calvarium: Mucous retention cyst sphenoid sinus. IMPRESSION: Unremarkable noncontrast head CT. No intracranial bleed or mass effect. Please note that all CT scans at this facility use dose modulation, iterative reconstruction, and/or weight-based dosing when appropriate to reduce radiation dose to as low as reasonably achievable. Dictated by Kendell Lynne MD @ May 13 2018 9:36PM Signed by Dr. Kendell Lynne @ May 13 2018 9:38PM
[2018-05-13 22:13] VITALS: BP 150/96
== END 2018-05-13 22:00 | disposition home or self-care (01) ==
LOC: MW.ED 20:30
DX: G51.0 Bell's palsy (principal); F17.210 Nicotine dependence, cigarettes, uncomplicated; R40.2410 Glasgow coma scale score 13-15, unspecified time
CPT/HCPCS: 70450; 96374; 99283; A9270; J2930

== ENCOUNTER 2018-09-19 10:33 | Emergency (ER) | payer OTHER ==
[2018-09-19] MEDS ORDERED: Nitroglycerin 0.4 MG Tab.SL SL ONE (10:45)
[2018-09-19] MEDS ORDERED: Aspirin 81 MG Tab.Chew PO ONE (10:45)
[2018-09-19] MEDS ORDERED: Sodium Chloride 0.9% 1,000 ML IV ONE (10:45)
--- NOTE | 2018-09-19 10:48 | EDM.PDOC ---
ED HPI GENERAL MEDICAL PROBLEM - General Chief Complaint: Chest Pain Stated Complaint: CHEST PAIN Time Seen by Provider: 09/19/18 10:35 Source of Information: Reports: Patient History Limitations: Reports: No Limitations - History of Present Illness INITIAL COMMENTS - FREE TEXT/NARRATIVE: HISTORY AND PHYSICAL: History of present illness: Patient is a 32-year-old male presents to the ED today with concern of right- sided chest pain that radiates to the back for approximately 10 minutes prior to arrival to the ED. Patient states he has a history of cardiac arrest back in February from an unknown cause. Patient states there was discussion about him getting an ICD placement but he has not had this done. Patient states he does not have a diagnosis as to what caused his arrest back in February but he is concerned about his chest pain potentially leading to an arrest. Patient states that nothing makes the pain better or worse but that the pain comes and goes. He rates his pain an 8 out of 10 and states that it radiates to the left shoulder blade. Patient denies any other symptoms at this time or any other health history. Patient denies fever, chills, chest pain, shortness of breath, or cough. Denies headache, neck stiff ness, change in vision, syncope, or near syncope. Denies nausea, vomiting, abdominal pain, diarrhea, constipation, or dysuria. Has not noted any blood in urine or stool. Patient has been eating and drinking appropriately. Review of systems: As per history of present illness and below otherwise all systems reviewed and negative. Past medical history: As per history of present illness and as reviewed below otherwise noncontributory. Surgical history: As per history of present illness and as reviewed below otherwise noncontributory. Social history: See social history for further information Family history: As per history of present illness and as reviewed below otherwise noncontributory. Physical exam: General: Patient is alert, oriented, and in no acute distress. Patient sitting comfortably on exam table. HEENT: Atraumatic, normocephalic, pupils equal and reactive bilaterally, negative for conjunctival pallor or scleral icterus, mucous membranes moist, TMs normal bilaterally, throat clear, neck supple, nontender, trachea midline. No drooling or trismus noted. No meningeal signs. No hot potato voice noted. Lungs: Clear to auscultation, breath sounds equal bilaterally, chest nontender. Heart: S1S2, regular rate and rhythm without overt murmur. Tachycardic. Abdomen: Soft, nondistended, nontender. Negative for masses or hepatosplenomegaly. Negative for costovertebral tenderness. Pelvis: Stable nontender. Genitourinary: Deferred. Rectal: Deferred. Skin: Intact, warm, dry. No lesions or rashes noted. Extremities: Atraumatic, negative for cords or calf pain. Neurovascular unremarkable. Neuro: Awake, alert, oriented. Cranial nerves II through XII unremarkable. Cerebellum unremarkable. Motor and sensory unremarkable throughout. Exam nonfocal. Notes: Offered admission for observation but patient declines. Discussed the importance for follow-up with his deck specialist. Voices understanding and is agreeable to plan of care. Denies any further questions or concerns at this time. Diagnostics: CBC, CMP, UA, EKG, troponin, chest x-ray, lipase Therapeutics: ASA, saline, Ativan Prescription: None Impression: Chest pain, unspecified Plan: 1. Alternate ibuprofen and Tylenol as directed for pain and discomfort. 2. Follow-up with your deck specialist as discussed. Return to the ED as needed and as discussed. Definitive disposition and diagnosis as appropriate pending reevaluation and review of above. chest Pain Score (Numeric/FACES): 4 - Related Data Allergies Allergy/AdvReac Type Severity Reaction Status Date / Time No Known Allergies Allergy Verified 09/19/18 10:41 Home Meds: Home Meds . [No Known Home Meds] 05/13/18 [History] Past Medical History - Past Health History Medical/Surgical History: Denies Medical/Surgical History HEENT History: Reports: None Cardiovascular History: Reports: Other (See Below) Other Cardiovascular History: Cardiac arrest 2017 Respiratory History: Reports: Bronchitis, Recurrent Gastrointestinal History: Reports: None Genitourinary History: Reports: None Musculoskeletal History: Reports: None Neurological History: Reports: Other (See Below) Other Neuro History: bells palsy bilateral face Psychiatric History: Reports: None Endocrine/Metabolic History: Reports: None Hematologic History: Reports: None Immunologic History: Reports: None Oncologic (Cancer) History: Reports: None Dermatologic History: Reports: None - Infectious Disease History Infectious Disease History: Reports: None - Past Surgical History Head Surgeries/Procedures: Reports: None HEENT Surgical History: Reports: None Cardiovascular Surgical History: Reports: None Respiratory Surgical History: Reports: None GI Surgical History: Reports: None Male Surgical History: Reports: None Endocrine Surgical History: Reports: None Neurological Surgical History: Reports: None Musculoskeletal Surgical History: Reports: None Oncologic Surgical History: Reports: None Dermatological Surgical History: Reports: None Social & Family History - Family History Family Medical History: Noncontributory - Tobacco Use Smoking Status *Q: Current Every Day Smoker Years of Tobacco use: 13 Packs/Tins Daily: 0.5 - Caffeine Use Caffeine Use: Reports: Coffee - Recreational Drug Use Recreational Drug Use: No ED ROS GENERAL - Review of Systems Review Of Systems: ROS reveals no pertinent complaints other than HPI. ED EXAM, GENERAL - Physical Exam Exam: See Below (See dictation) Course - Vital Signs Last Recorded V/S: Last Vital Signs Temp 36.4 C 09/19/18 10:36 Pulse 81 09/19/18 11:15 Resp 16 09/19/18 11:15 BP 132/84 09/19/18 11:15 Pulse Ox 96 09/19/18 11:15 - Orders/Labs/Meds Orders: Active Orders 24 hr Category Date Time Status EKG Documentation Completion [RC] STAT Care 09/19/18 10:45 Active UA RFX MOHINI AND CULT IF INDIC [URIN] Stat Lab 09/19/18 10:45 Ordered Labs: Laboratory Tests 09/19/18 09/19/18 Range/Units 10:40 10:40 WBC 9.13 (4.0-11.0) K/uL RBC 5.70 (4.50-5.90) M/uL Hgb 18.3 H (13.0-17.0) g/dL Hct 51.8 H (38.0-50.0) % MCV 90.9 (80.0-98.0) fL MCH 32.1 H (27.0-32.0) pg MCHC 35.3 (31.0-37.0) g/dL RDW Std Deviation 42.0 (28.0-62.0) fl RDW Coeff of Ran 13 (11.0-15.0) % Plt Count 174 (150-400) K/uL MPV 12.80 H (7.40-12.00) fL Neut % (Auto) 52.9 (48.0-80.0) % Lymph % (Auto) 31.7 (16.0-40.0) % Valley % (Auto) 12.0 (0.0-15.0) % Eos % (Auto) 3.2 (0.0-7.0) % Baso % (Auto) 0.2 (0.0-1.5) % Neut # (Auto) 4.8 (1.4-5.7) K/uL Lymph # (Auto) 2.9 H (0.6-2.4) K/uL Valley # (Auto) 1.1 H (0.0-0.8) K/uL Eos # (Auto) 0.3 (0.0-0.7) K/uL Baso # (Auto) 0.0 (0.0-0.1) K/uL Nucleated RBC % 0.0 /100WBC Nucleated RBCs # 0 K/uL Sodium 138 (136-148) mmol/L Potassium 3.9 (3.5-5.1) mmol/L Chloride 103 (98-107) mmol/L Carbon Dioxide 25.0 (21.0-32.0) mmol/L BUN 13 (7.0-18.0) mg/dL Creatinine 1.2 (0.8-1.3) mg/dL Est Cr Clr Drug Dosing 97.00 mL/min Estimated GFR (MDRD) > 60.0 ml/min Glucose 100 (74-106) mg/dL Calcium 8.9 (8.5-10.1) mg/dL Total Bilirubin 0.5 (0.2-1.0) mg/dL AST 31 (15-37) IU/L ALT 44 (14-63) IU/L Alkaline Phosphatase 69 (46-116) U/L Troponin I < 0.050 (0.000-0.056) ng/mL Total Protein 7.9 (6.4-8.2) g/dL Albumin 4.4 (3.4-5.0) g/dL Globulin 3.5 (2.6-4.0) g/dL Albumin/Globulin Ratio 1.3 (0.9-1.6) Lipase 104 (73-393) U/L Meds: Medications Discontinued Medications Generic Name Dose Route Start Last Admin Trade Name Freq PRN Reason Stop Dose Admin Aspirin 324 mg 09/19/18 10:45 09/19/18 10:58 Aspirin PO 09/19/18 10:46 324 mg ONETIME ONE Administration Sodium Chloride 1,000 mls @ 999 mls/hr 09/19/18 10:45 09/19/18 10:58 Normal Saline IV 09/19/18 11:45 999 mls/hr BOLUS ONE Administration Lorazepam 1 mg 09/19/18 10:51 09/19/18 10:59 Ativan IVPUSH 09/19/18 10:52 1 mg ONETIME ONE Administration Nitroglycerin 0.4 mg 09/19/18 10:45 09/19/18 11:01 Nitrostat SL 09/19/18 10:46 Not Given ONETIME ONE Departure - Departure Time of Disposition: 11:46 Disposition: Home, Self-Care 01 Clinical Impression: Chest pain Qualifiers: Chest pain type: other chest pain Qualified Code(s): R07.89 - Other chest pain Referrals: PCP,Unknown [Primary Care Provider] - Forms: ED Department Discharge Additional Instructions: The following information is given to patients seen in the emergency department who are being discharged to home. This information is to outline your options for follow-up care. We provide all patients seen in our emergency department with a follow-up referral. The need for follow-up, as well as the timing and circumstances, are variable depending upon the specifics of your emergency department visit. If you don't have a primary care physician on staff, we will provide you with a referral. We always advise you to contact your personal physician following an emergency department visit to inform them of the circumstance of the visit and for follow-up with them and/or the need for any referrals to a consulting specialist. The emergency department will also refer you to a specialist when appropriate. This referral assures that you have the opportunity for follow-up care with a specialist. All of these measure are taken in an effort to provide you with optimal care, which includes your follow-up. Under all circumstances we always encourage you to contact your private physician who remains a resource for coordinating your care. When calling for follow-up care, please make the office aware that this follow-up is from your recent emergency room visit. If for any reason you are refused follow-up, please contact the [facility] Emergency Department at and asked to speak to the emergency department charge nurse. [facility] Primary Care / Cardiology [address] [place] [address] [facility] [address] [place] [address] 1. Alternate ibuprofen and Tylenol as directed for pain and discomfort. 2. Follow-up with your deck specialist as discussed. Return to the ED as needed and as discussed. - My Orders Last 24 Hours: My Active Orders 09/19/18 10:45 EKG Documentation Completion [RC] STAT UA RFX MOHINI AND CULT IF INDIC [URIN] Stat - Assessment/Plan Last 24 Hours: My Active Orders 09/19/18 10:45 EKG Documentation Completion [RC] STAT UA RFX MOHINI AND CULT IF INDIC [URIN] Stat
[2018-09-19] MEDS ORDERED: LORazepam 2 MG/ML SDV IVPUSH ONE (10:51)
--- NOTE | 2018-09-19 11:02 | CR ---
EXAMINATION: Portable chest radiograph. HISTORY: Chest pain. FINDINGS: The trachea is midline. The cardiomediastinal silhouette is within normal limits. No pulmonary infiltrates, effusions or pneumothorax. Osseous structures appear unremarkable. IMPRESSION: No acute cardiopulmonary process.
[2018-09-19 11:21] LABS: CHLORIDE,CL 103 mmol/L (98-107); SODIUM,NA 138 mmol/L (136-148)
[2018-09-19 12:01] VITALS: BP 139/90
== END 2018-09-19 11:55 | disposition home or self-care (01) ==
LOC: MW.ED 10:33
DX: R07.89 Other chest pain (principal); F17.210 Nicotine dependence, cigarettes, uncomplicated
CPT/HCPCS: 36415; 71045; 80053; 83690; 84484; 85025; 93005; 96361; 96374; 99285; A9270; J2060; J7040

== ENCOUNTER 2018-12-22 00:11 | Observation (INO) | payer OTHER ==
[2018-12-22] MEDS ORDERED: Ondansetron 4 MG/2 ML SDV IVPUSH ONE (00:41)
[2018-12-22] MEDS ORDERED: Sodium Chloride 0.9% 1,000 ML IV ONE (00:41)
[2018-12-22] MEDS ORDERED: Aspirin 81 MG Tab.Chew PO ONE (00:41)
[2018-12-22] MEDS ORDERED: Sodium Chloride 0.9% 2.5 ML Syringe FLUSH PRN (00:41)
[2018-12-22] MEDS ORDERED: Sodium Chloride 0.9% 10 ML Syringe FLUSH PRN (00:41)
--- NOTE | 2018-12-22 00:47 | EDM.PDOC ---
ED HPI GENERAL MEDICAL PROBLEM - General Chief Complaint: Back Pain or Injury Stated Complaint: BACK PAIN Time Seen by Provider: 12/22/18 00:21 - History of Present Illness INITIAL COMMENTS - FREE TEXT/NARRATIVE: HISTORY AND PHYSICAL: History of present illness: The patient is a 33-year-old male with significant past medical history of having a V. fib arrest on February 23 for which he was defibrillated and returned to sinus rhythm and was brought here via EMS and then subsequently transferred to [facility] and [facility]. He had a heart catheter which was negative and he had further test both at [facility] and the [facility] all of which revealed no answer to why this cardiac event occurred. The patient is currently on no medications and has no significant family history and was only significant social history is of tobacco use. The patient said he was smoking and did quit and he has just restarted recently but is trying to taper down. He denies any drug use. The patient says that over the last 1 week he has had some loose stools but no abdominal pain or vomiting and then the last several days, 3 days, he has had upper respiratory symptoms with some congestion some nausea and some coughing productive of phlegm but no fevers or chest pain. He went to [facility] and was told that he had a URI and was given a prescription for amoxicillin but he had no testing on that visit and he has not filled the prescription yet. The patient says he has just felt very off the last 3 days and not quite right and he just thought he was coming down with something but he had no specific pain. This evening he was getting ready for bed and resting and he started having a pressure-like sensation just underneath his left scapula almost on the left side of his back. It did not radiate and it was not associated with shortness of breath sweating nausea vomiting abdominal pain chest pain or lightheadedness. He did not take any medications prior to coming here. He says that he has never had this before and he was somewhat concerned. He says that initially it was only lasting about 1 minute and seemed to go away and then he has had on and off for the last one hour of this discomfort and was concerned in light of his history. The pain does not radiate to his arm or to his anterior chest. He denies any recent trauma and says that if he takes a deep breath or moves his arms it does not make the pain worse and he cannot elicit the pain by touching the area. He has no other complaints with this pain other than the nausea but he says that that is not new and he has had that for the last 3 days. The patient did eat a small piece of pizza and some chicken wings earlier but has no history of food intolerance The patient says the discomfort earlier was an 8/10 and is currently at 2/10 and he did not take anything for it. Again he denies trauma in this region. Review of systems: As per history of present illness and below otherwise all systems reviewed and negative. Past medical history: As per history of present illness and as reviewed below otherwise noncontributory. Surgical history: As per history of present illness and as reviewed below otherwise noncontributory. Social history: No reported history of drug or alcohol abuse. Family history: As per history of present illness and as reviewed below otherwise noncontributory. Physical exam: General: Well-developed well-nourished slightly overweight man who is nontoxic and vital signs are noted by me. He is speaking clearly and easily in the ED and moves easily without distress HEENT: Atraumatic, normocephalic, pupils reactive, negative for conjunctival pallor or scleral icterus, mucous membranes moist, throat clear, neck supple, nontender, trachea midline. Lungs: Clear to auscultation, breath sounds equal bilaterally, chest nontender. On palpation of his left upper back area I cannot elicit the pain nor do I feel any defects deformities or crepitus and there is no midline tenderness in the thoracic spine. There is no wheezing stridor or work of breathing Heart: S1S2, regular, negative for clicks, rubs, or JVD. Abdomen: Soft, nondistended, nontender. Negative for masses or hepatosplenomegaly. Negative for costovertebral tenderness. Pelvis: Stable nontender. Genitourinary: Deferred. Rectal: Deferred. Extremities: Atraumatic, negative for cords or calf pain. Neurovascular unremarkable. No pedal edema or leg asymmetry Neuro: Awake, alert, oriented. Cranial nerves II through XII unremarkable. Cerebellum unremarkable. Motor and sensory unremarkable throughout. Exam nonfocal. Diagnostics: EKG CBC CMP d-dimer INR lipase troponin chest x-ray Therapeutics: IV O2 monitor IV fluids aspirin Blood pressure in left arm is 127/88 and blood pressure and right arm is 133/89 All testing results were discussed with the patient and due to his significant history and the unclear origin of this discomfort I have advised observation admission and he is agreeable. This case was discussed with Dr. Cristobal at 0143 and he accepts the patient for admission Impression: Left back pain/atypical Definitive disposition and diagnosis as appropriate pending reevaluation and review of above. - Related Data Allergies Allergy/AdvReac Type Severity Reaction Status Date / Time No Known Allergies Allergy Verified 12/22/18 00:27 Home Meds: Home Meds . [No Known Home Meds] 05/13/18 [History] Past Medical History - Past Health History Medical/Surgical History: Denies Medical/Surgical History HEENT History: Reports: Impaired Vision, Other (See Below) Other HEENT History: wears glasses Cardiovascular History: Reports: Other (See Below) Other Cardiovascular History: Cardiac arrest 2017 Respiratory History: Reports: Bronchitis, Recurrent Gastrointestinal History: Reports: None Genitourinary History: Reports: None Musculoskeletal History: Reports: None Neurological History: Reports: Other (See Below) Other Neuro History: bells palsy bilateral face Psychiatric History: Reports: Anxiety Endocrine/Metabolic History: Reports: None Hematologic History: Reports: None Immunologic History: Reports: None Oncologic (Cancer) History: Reports: None Dermatologic History: Reports: None - Infectious Disease History Infectious Disease History: Reports: None - Past Surgical History Head Surgeries/Procedures: Reports: None HEENT Surgical History: Reports: None Cardiovascular Surgical History: Reports: None Respiratory Surgical History: Reports: None GI Surgical History: Reports: None Male Surgical History: Reports: None Endocrine Surgical History: Reports: None Neurological Surgical History: Reports: None Musculoskeletal Surgical History: Reports: None Oncologic Surgical History: Reports: None Dermatological Surgical History: Reports: None Social & Family History - Family History Family Medical History: Noncontributory - Tobacco Use Smoking Status *Q: Current Every Day Smoker Years of Tobacco use: 1 Packs/Tins Daily: 0.5 Second Hand Smoke Exposure: No - Caffeine Use Caffeine Use: Reports: None - Recreational Drug Use Recreational Drug Use: No ED ROS GENERAL - Review of Systems Review Of Systems: ROS reveals no pertinent complaints other than HPI. ED EXAM, GENERAL - Physical Exam Exam: See Below (See dictation) Course - Vital Signs Last Recorded V/S: Last Vital Signs Temp 35.8 C 12/22/18 00:20 Pulse 79 12/22/18 00:20 Resp 17 12/22/18 00:20 BP 127/88 12/22/18 00:50 Pulse Ox 99 12/22/18 00:20 - Orders/Labs/Meds Orders: Active Orders 24 hr Category Date Time Status Cardiac Monitoring [RC] . DIRECTED Care 12/22/18 00:40 Active Communication Order [RC] STAT Care 12/22/18 00:47 Active EKG Documentation Completion [RC] STAT Care 12/22/18 00:40 Active Oxygen Therapy, ED [RC] ASDIRECTED Care 12/22/18 00:40 Active Pulse Oximetry [RC] ASDIRECTED Care 12/22/18 00:40 Active Sodium Chloride 0.9% [Saline Flush] Med 12/22/18 00:41 Active 10 ml FLUSH ASDIRECTED PRN Sodium Chloride 0.9% [Saline Flush] Med 12/22/18 00:41 Active 2.5 ml FLUSH ASDIRECTED PRN Saline Lock Insert [OM.PC] Stat Oth 12/22/18 00:40 Ordered Medication Orders Sodium Chloride (Saline Flush) 10 ml FLUSH ASDIRECTED PRN PRN Reason: Keep Vein Open Sodium Chloride (Saline Flush) 2.5 ml FLUSH ASDIRECTED PRN PRN Reason: Keep Vein Open Labs: Laboratory Tests 12/22/18 12/22/18 12/22/18 Range/Units 00:49 00:49 00:49 WBC 9.26 (4.0-11.0) K/uL RBC 5.36 (4.50-5.90) M/uL Hgb 17.1 H (13.0-17.0) g/dL Hct 48.1 (38.0-50.0) % MCV 89.7 (80.0-98.0) fL MCH 31.9 (27.0-32.0) pg MCHC 35.6 (31.0-37.0) g/dL RDW Std Deviation 41.0 (28.0-62.0) fl RDW Coeff of Ran 13 (11.0-15.0) % Plt Count 169 (150-400) K/uL MPV 12.10 H (7.40-12.00) fL Neut % (Auto) 50.9 (48.0-80.0) % Lymph % (Auto) 33.9 (16.0-40.0) % [place] % (Auto) 10.9 (0.0-15.0) % Eos % (Auto) 4.1 (0.0-7.0) % Baso % (Auto) 0.2 (0.0-1.5) % Neut # (Auto) 4.7 (1.4-5.7) K/uL Lymph # (Auto) 3.1 H (0.6-2.4) K/uL [place] # (Auto) 1.0 H (0.0-0.8) K/uL Eos # (Auto) 0.4 (0.0-0.7) K/uL Baso # (Auto) 0.0 (0.0-0.1) K/uL INR D-Dimer, Quantitative < 0.19 (0.0-0.50) mg/L FEU Sodium 140 (136-148) mmol/L Potassium 4.0 (3.5-5.1) mmol/L Chloride 105 (98-107) mmol/L Carbon Dioxide 23.1 (21.0-32.0) mmol/L BUN 19 H (7.0-18.0) mg/dL Creatinine 1.4 H (0.8-1.3) mg/dL Est Cr Clr Drug Dosing 82.37 mL/min Estimated GFR (MDRD) 58.4 ml/min Glucose 100 (74-106) mg/dL Calcium 9.2 (8.5-10.1) mg/dL Total Bilirubin 0.5 (0.2-1.0) mg/dL AST 25 (15-37) IU/L ALT 40 (14-63) IU/L Alkaline Phosphatase 63 (46-116) U/L Troponin I < 0.050 (0.000-0.056) ng/mL Total Protein 7.1 (6.4-8.2) g/dL Albumin 3.7 (3.4-5.0) g/dL Globulin 3.4 (2.6-4.0) g/dL Albumin/Globulin Ratio 1.1 (0.9-1.6) Lipase 100 (73-393) U/L 12/22/18 Range/Units 00:49 WBC (4.0-11.0) K/uL RBC (4.50-5.90) M/uL Hgb (13.0-17.0) g/dL Hct (38.0-50.0) % MCV (80.0-98.0) fL MCH (27.0-32.0) pg MCHC (31.0-37.0) g/dL RDW Std Deviation (28.0-62.0) fl RDW Coeff of Ran (11.0-15.0) % Plt Count (150-400) K/uL MPV (7.40-12.00) fL Neut % (Auto) (48.0-80.0) % Lymph % (Auto) (16.0-40.0) % [place] % (Auto) (0.0-15.0) % Eos % (Auto) (0.0-7.0) % Baso % (Auto) (0.0-1.5) % Neut # (Auto) (1.4-5.7) K/uL Lymph # (Auto) (0.6-2.4) K/uL [place] # (Auto) (0.0-0.8) K/uL Eos # (Auto) (0.0-0.7) K/uL Baso # (Auto) (0.0-0.1) K/uL INR 0.94 D-Dimer, Quantitative (0.0-0.50) mg/L FEU Sodium (136-148) mmol/L Potassium (3.5-5.1) mmol/L Chloride (98-107) mmol/L Carbon Dioxide (21.0-32.0) mmol/L BUN (7.0-18.0) mg/dL Creatinine (0.8-1.3) mg/dL Est Cr Clr Drug Dosing mL/min Estimated GFR (MDRD) ml/min Glucose (74-106) mg/dL Calcium (8.5-10.1) mg/dL Total Bilirubin (0.2-1.0) mg/dL AST (15-37) IU/L ALT (14-63) IU/L Alkaline Phosphatase (46-116) U/L Troponin I (0.000-0.056) ng/mL Total Protein (6.4-8.2) g/dL Albumin (3.4-5.0) g/dL Globulin (2.6-4.0) g/dL Albumin/Globulin Ratio (0.9-1.6) Lipase (73-393) U/L Meds: Medications Generic Name Dose Route Start Last Admin Trade Name Freq PRN Reason Stop Dose Admin Sodium Chloride 10 ml 12/22/18 00:41 Saline Flush FLUSH ASDIRECTED PRN Keep Vein Open Sodium Chloride 2.5 ml 12/22/18 00:41 Saline Flush FLUSH ASDIRECTED PRN Keep Vein Open Discontinued Medications Generic Name Dose Route Start Last Admin Trade Name Freq PRN Reason Stop Dose Admin Aspirin 324 mg 12/22/18 00:41 12/22/18 00:46 Aspirin PO 12/22/18 00:42 324 mg ONETIME ONE Administration Sodium Chloride 1,000 mls @ 999 mls/hr 12/22/18 00:41 12/22/18 00:46 Normal Saline IV 12/22/18 01:41 999 mls/hr STAT ONE Administration Ondansetron HCl 4 mg 12/22/18 00:41 12/22/18 00:46 Zofran IVPUSH 12/22/18 00:42 4 mg ONETIME ONE Administration Departure - Departure Time of Disposition: 01:47 Disposition: Refer to Observation Condition: Good Clinical Impression: Left-sided thoracic back pain Qualifiers: Chronicity: acute Qualified Code(s): M54.6 - Pain in thoracic spine - Discharge Information Referrals: PCP,None [Primary Care Provider] - Forms: ED Department Discharge - My Orders Last 24 Hours: My Active Orders 12/22/18 00:40 Cardiac Monitoring [RC] . DIRECTED EKG Documentation Completion [RC] STAT Oxygen Therapy, ED [RC] ASDIRECTED Pulse Oximetry [RC] ASDIRECTED Saline Lock Insert [OM.PC] Stat 12/22/18 00:41 Sodium Chloride 0.9% [Saline Flush] 10 ml FLUSH ASDIRECTED PRN Sodium Chloride 0.9% [Saline Flush] 2.5 ml FLUSH ASDIRECTED PRN 12/22/18 00:47 Communication Order [RC] STAT - Assessment/Plan Last 24 Hours: My Active Orders 12/22/18 00:40 Cardiac Monitoring [RC] . DIRECTED EKG Documentation Completion [RC] STAT Oxygen Therapy, ED [RC] ASDIRECTED Pulse Oximetry [RC] ASDIRECTED Saline Lock Insert [OM.PC] Stat 12/22/18 00:41 Sodium Chloride 0.9% [Saline Flush] 10 ml FLUSH ASDIRECTED PRN Sodium Chloride 0.9% [Saline Flush] 2.5 ml FLUSH ASDIRECTED PRN 12/22/18 00:47 Communication Order [RC] STAT
[2018-12-22 01:21] LABS: BLOOD UREA NITROGEN,BUN 19 mg/dL (7.0-18.0); CARBON DIOXIDE,CO2 23.1 mmol/L (21.0-32.0); CHLORIDE,CL 105 mmol/L (98-107); GLUCOSE RANDOM 100 mg/dL (74-106); LIPASE 100 U/L (73-393); SODIUM,NA 140 mmol/L (136-148)
--- NOTE | 2018-12-22 01:23 | CR ---
INDICATION: Chest pain TECHNIQUE: Chest radiograph 1 view on 2 films COMPARISON: None FINDINGS: Mediastinum: The mediastinum is normal in appearance. The heart silhouette is normal in size and morphology. Lung: Both lungs are unremarkable in appearance. No sign of pleural effusion seen. No pneumothorax is identified. IMPRESSION: 1. No acute cardiopulmonary disease is seen. Dictated by: Matt Rose MD @ 12/22/2018 01:21:47 (Electronically Signed)
[2018-12-22] MEDS ORDERED: Acetaminophen 325 MG Tab PO PRN (03:07)
[2018-12-22] MEDS ORDERED: oxyCODONE 5 MG Tab PO PRN (03:08)
--- NOTE | 2018-12-22 09:58 | PCM.HP.2 ---
H&P History of Present Illness - General Date of Service: 12/22/18 Admit Problem/Dx: Admission Diagnosis/Problem Admission Diagnosis/Problem Thoracic back pain - History of Present Illness Initial Comments - Free Text/Narative: patient is a 33-year-old male with a significant past medical history of obesity , hypertension, and episode of V. fib occurring last year in February 2018 with unclear etiology; presenting to [facility] ED with 10 out of 10 in excruciating upper back pain. States he was laying in bed and had this pain in his upper back, atraumatic, nonradiating. States the pain was worsening and making him concerned secondary to his episode of V. fib. February 2018, patient had a episode of ventricular fibrillation, which a catheterization was done yielding no coronary blockages, stress test was performed as well showing no ST elevation or abnormalities; patient has been followed by cardiology Dr. Casarez in [facility]. Patient otherwise endorses no other acute symptoms including diaphoresis or shortness of breath. States he is a half a pack of cigarettes smoker per day. Social drinker of alcohol. Denies use of any other illicit drugs including marijuana, methamphetamine, cocaine etc.. Does complain of a subacute lower back pain with radiation into the legs without urinary or bowel incontinence. But states it's been going on for quite some time and has not been interfering with his daily activities. Bedside: patient currently denies any chest pain, shortness breath, sweating, dizziness, headache or any other new symptoms. - Related Data Allergies/Adverse Reactions: Allergies Allergy/AdvReac Type Severity Reaction Status Date / Time No Known Allergies Allergy Verified 12/22/18 00:27 Home Medications: Home Meds . [No Known Home Meds] 05/13/18 [History] Past Medical History - Past Health History Medical/Surgical History: Denies Medical/Surgical History HEENT History: Reports: Impaired Vision, Other (See Below) Other HEENT History: wears glasses Cardiovascular History: Reports: Other (See Below) Other Cardiovascular History: Cardiac arrest 2017 Respiratory History: Reports: Bronchitis, Recurrent Gastrointestinal History: Reports: None Genitourinary History: Reports: None Musculoskeletal History: Reports: None Neurological History: Reports: Other (See Below) Other Neuro History: bells palsy bilateral face Psychiatric History: Reports: Anxiety Endocrine/Metabolic History: Reports: None Hematologic History: Reports: None Immunologic History: Reports: None Oncologic (Cancer) History: Reports: None Dermatologic History: Reports: None - Infectious Disease History Infectious Disease History: Reports: None - Past Surgical History Head Surgeries/Procedures: Reports: None HEENT Surgical History: Reports: None Cardiovascular Surgical History: Reports: None Respiratory Surgical History: Reports: None GI Surgical History: Reports: None Male Surgical History: Reports: None Endocrine Surgical History: Reports: None Neurological Surgical History: Reports: None Musculoskeletal Surgical History: Reports: None Oncologic Surgical History: Reports: None Dermatological Surgical History: Reports: None Social & Family History - Family History Family Medical History: Noncontributory - Tobacco Use Smoking Status *Q: Current Every Day Smoker Years of Tobacco use: 10 Packs/Tins Daily: 0.5 Used Tobacco, but Quit: No Second Hand Smoke Exposure: No - Caffeine Use Caffeine Use: Reports: Coffee - Recreational Drug Use Recreational Drug Use: No H&P Review of Systems - Review of Systems: Review Of Systems: See Below General: Reports: No Symptoms. Denies: Fever, Chills, Malaise, Weakness HEENT: Reports: No Symptoms. Denies: Headaches Pulmonary: Reports: No Symptoms. Denies: Shortness of Breath, Cough Cardiovascular: Reports: No Symptoms. Denies: Chest Pain, Palpitations, Lightheadedness Gastrointestinal: Reports: No Symptoms, Diarrhea. Denies: Abdominal Pain, Anorexia Musculoskeletal: Reports: Back Pain Neurological: Denies: Confusion, Dizziness, Headache Exam - Exam Exam: See Below - Vital Signs Vital Signs: Last Vital Signs Temp 97.4 F 12/22/18 07:30 Pulse 81 12/22/18 07:30 Resp 17 12/22/18 07:30 BP 107/71 12/22/18 07:30 Pulse Ox 97 12/22/18 07:30 Weight: 267 lb 3.2 oz - Exam General: Alert, Oriented, Cooperative HEENT: Conjunctiva Clear, EOMI Neck: Supple, Trachea Midline Lungs: Clear to Auscultation, Normal Respiratory Effort Cardiovascular: Regular Rate, Regular Rhythm, Normal S1, Normal S2 GI/Abdominal Exam: Normal Bowel Sounds, Soft, Non-Tender Back Exam: Normal Inspection, Full Range of Motion, Other (L2-S1 midline tenderness; FROM , lower extremity FROM , 5/5 strength, sensation intact, b/l L/ E pulses intact ) Skin: Warm, Dry, Intact Neurological: Cranial Nerves Intact Neuro Extensive - Mental Status: Alert, Oriented x3, Normal Mood/Affect Neuro Extensive - Motor, Sensory, Reflexes: CN II-XII Intact Psychiatric: Alert, Normal Affect, Normal Mood - Patient Data Lab Results Last 24 hrs: Laboratory Results - last 24 hr 12/22/18 12/22/18 12/22/18 Range/Units 00:49 00:49 00:49 WBC 9.26 (4.0-11.0) K/uL RBC 5.36 (4.50-5.90) M/uL Hgb 17.1 H (13.0-17.0) g/dL Hct 48.1 (38.0-50.0) % MCV 89.7 (80.0-98.0) fL MCH 31.9 (27.0-32.0) pg MCHC 35.6 (31.0-37.0) g/dL RDW Std Deviation 41.0 (28.0-62.0) fl RDW Coeff of Ran 13 (11.0-15.0) % Plt Count 169 (150-400) K/uL MPV 12.10 H (7.40-12.00) fL Neut % (Auto) 50.9 (48.0-80.0) % Lymph % (Auto) 33.9 (16.0-40.0) % [place] % (Auto) 10.9 (0.0-15.0) % Eos % (Auto) 4.1 (0.0-7.0) % Baso % (Auto) 0.2 (0.0-1.5) % Neut # (Auto) 4.7 (1.4-5.7) K/uL Lymph # (Auto) 3.1 H (0.6-2.4) K/uL [place] # (Auto) 1.0 H (0.0-0.8) K/uL Eos # (Auto) 0.4 (0.0-0.7) K/uL Baso # (Auto) 0.0 (0.0-0.1) K/uL INR D-Dimer, Quantitative < 0.19 (0.0-0.50) mg/L FEU Sodium 140 (136-148) mmol/L Potassium 4.0 (3.5-5.1) mmol/L Chloride 105 (98-107) mmol/L Carbon Dioxide 23.1 (21.0-32.0) mmol/L BUN 19 H (7.0-18.0) mg/dL Creatinine 1.4 H (0.8-1.3) mg/dL Est Cr Clr Drug Dosing 82.37 mL/min Estimated GFR (MDRD) 58.4 ml/min Glucose 100 (74-106) mg/dL Calcium 9.2 (8.5-10.1) mg/dL Total Bilirubin 0.5 (0.2-1.0) mg/dL AST 25 (15-37) IU/L ALT 40 (14-63) IU/L Alkaline Phosphatase 63 (46-116) U/L Troponin I < 0.050 (0.000-0.056) ng/mL Total Protein 7.1 (6.4-8.2) g/dL Albumin 3.7 (3.4-5.0) g/dL Globulin 3.4 (2.6-4.0) g/dL Albumin/Globulin Ratio 1.1 (0.9-1.6) Lipase 100 (73-393) U/L 12/22/18 12/22/18 Range/Units 00:49 08:15 WBC (4.0-11.0) K/uL RBC (4.50-5.90) M/uL Hgb (13.0-17.0) g/dL Hct (38.0-50.0) % MCV (80.0-98.0) fL MCH (27.0-32.0) pg MCHC (31.0-37.0) g/dL RDW Std Deviation (28.0-62.0) fl RDW Coeff of Ran (11.0-15.0) % Plt Count (150-400) K/uL MPV (7.40-12.00) fL Neut % (Auto) (48.0-80.0) % Lymph % (Auto) (16.0-40.0) % [place] % (Auto) (0.0-15.0) % Eos % (Auto) (0.0-7.0) % Baso % (Auto) (0.0-1.5) % Neut # (Auto) (1.4-5.7) K/uL Lymph # (Auto) (0.6-2.4) K/uL [place] # (Auto) (0.0-0.8) K/uL Eos # (Auto) (0.0-0.7) K/uL Baso # (Auto) (0.0-0.1) K/uL INR 0.94 D-Dimer, Quantitative (0.0-0.50) mg/L FEU Sodium (136-148) mmol/L Potassium (3.5-5.1) mmol/L Chloride (98-107) mmol/L Carbon Dioxide (21.0-32.0) mmol/L BUN (7.0-18.0) mg/dL Creatinine (0.8-1.3) mg/dL Est Cr Clr Drug Dosing mL/min Estimated GFR (MDRD) ml/min Glucose (74-106) mg/dL Calcium (8.5-10.1) mg/dL Total Bilirubin (0.2-1.0) mg/dL AST (15-37) IU/L ALT (14-63) IU/L Alkaline Phosphatase (46-116) U/L Troponin I < 0.050 (0.000-0.056) ng/mL Total Protein (6.4-8.2) g/dL Albumin (3.4-5.0) g/dL Globulin (2.6-4.0) g/dL Albumin/Globulin Ratio (0.9-1.6) Lipase (73-393) U/L Result Diagrams: 12/22/18 00:49 12/22/18 00:49 - Problem List (1) Left-sided thoracic back pain SNOMED Code(s): 952073372 ICD Code: M54.6 - PAIN IN THORACIC SPINE Status: Acute Current Visit: Yes Qualifiers: Chronicity: acute Qualified Code(s): M54.6 - Pain in thoracic spine Problem List Initiated/Reviewed/Updated: Yes Orders Last 24hrs: Active Orders 24 hr Category Date Time Status Patient Status [ADT] Stat ADT 12/22/18 01:48 Active Pulse Oximetry [RC] ASDIRECTED Care 12/22/18 00:40 Active Telemetry Monitoring [Cardiac Monitoring] [RC] Q8H Care 12/22/18 03:04 Active Cardiac [Heart Healthy Diet] [DIET] Diet 12/22/18 Breakfast Active DRUG SCREEN, URINE [URCHEM] Urgent Lab 12/22/18 08:47 Ordered TROPONIN I [CHEM] Routine Lab 12/22/18 13:00 Ordered Acetaminophen [Tylenol] Med 12/22/18 03:07 Active 650 mg PO Q6H PRN Sodium Chloride 0.9% [Saline Flush] Med 12/22/18 00:41 Active 10 ml FLUSH ASDIRECTED PRN Sodium Chloride 0.9% [Saline Flush] Med 12/22/18 00:41 Active 2.5 ml FLUSH ASDIRECTED PRN oxyCODONE Med 12/22/18 03:08 Active 5 mg PO Q4H PRN Saline Lock Insert [OM.PC] Stat Oth 12/22/18 00:40 Ordered Medication Orders Acetaminophen (Tylenol) 650 mg PO Q6H PRN PRN Reason: Pain (mild 1-3) Oxycodone HCl (Oxycodone) 5 mg PO Q4H PRN PRN Reason: Pain (moderate 4-6) Sodium Chloride (Saline Flush) 10 ml FLUSH ASDIRECTED PRN PRN Reason: Keep Vein Open Sodium Chloride (Saline Flush) 2.5 ml FLUSH ASDIRECTED PRN PRN Reason: Keep Vein Open Assessment/Plan Comment:: Assessment: Admit to observation. Full code. Intake output per routine. Vitals per routine. Pantoprazole 40 daily. SCDs. Telemetry. 1. Thoracic back pain with ACS rule out in a patient with history of ventricular fibrillation. 2. Past medical history: obesity, hypertension 3. Lower back pain w/ radiculopathy. Plan: 1. Back pain: troponin every 6hrs x 3. Telemetry. Chest x-ray: no acute cardiopulmonary pathology noted. urine drug screen: ordered. We'll continue to monitor. Patient is stable. Aspirin 325 : administered. 2. d-dimer: negative, lipase: negative, troponin 2: negative. 3. Past medical history: continue to monitor. 4. Lower back pain w/ radiculopathy: will continue to monitor; stable; will consider outpatient PCP f/u if not related to current admission.
[2018-12-22 11:43] VITALS: BP 109/66; PULSE 62
[2018-12-23] MEDS ORDERED: Pantoprazole 40 MG Tab.CR PO SCH (07:30)
== END 2018-12-22 14:59 | disposition home or self-care (01) ==
LOC: MW.ED 00:11 → MW.MS 01:48
PROVIDERS: ADMIT Internal Medicine; ATTEND Internal Medicine
DX: M54.6 Pain in thoracic spine (principal); M54.16 Radiculopathy, lumbar region; I10 Essential (primary) hypertension; F17.210 Nicotine dependence, cigarettes, uncomplicated; E66.9 Obesity, unspecified; Z86.79 Personal history of other diseases of the circulatory system; Z68.36 Body mass index [BMI] 36.0-36.9, adult
CPT/HCPCS: 36415; 71045; 80053; 80305; 83690; 84484; 85025; 85379; 85610; 93005; 96361; 96374; 99284; A9270; G0378; J2405; J7040; 99283

== ENCOUNTER 2019-01-08 21:29 | Emergency (ER) | payer OTHER ==
--- NOTE | 2019-01-08 21:33 | EDM.PDOC ---
ED HPI GENERAL MEDICAL PROBLEM - General Chief Complaint: General Stated Complaint: SHAKING Time Seen by Provider: 01/08/19 21:33 Source of Information: Reports: Patient History Limitations: Reports: No Limitations - History of Present Illness INITIAL COMMENTS - FREE TEXT/NARRATIVE: HISTORY AND PHYSICAL: History of present illness: Patient is a 33-year-old male who presents to the emergency room with complaints of generalized abdominal pain and an episode where he felt tremulous for approximately 5-10 minutes. He states over the past several days he has been under a lot of stress as he and his have been fighting. Prior to arrival he had an argument with his and had stepped into get ready to take a shower when he states he "was shaking uncontrollably". He was alert and oriented during this episode he states he was not able to control the shaking but did resolve on its own within 5-10 minutes. During that time he developed generalized abdominal pain which seems to have improved since arrival to the emergency room. Patient denies any fever, chills, headache, change in vision, syncope or near syncope. Denies any chest pain, back pain, shortness of breath or cough. Denies any nausea, vomiting, diarrhea, constipation or dysuria. Has not noted any blood in urine or stool. Patient has been eating and drinking appropriately. Review of systems: As per history of present illness and below otherwise all systems reviewed and negative. Past medical history: As per history of present illness and as reviewed below otherwise noncontributory. Surgical history: As per history of present illness and as reviewed below otherwise noncontributory. Social history: See social history for further information Family history: As per history of present illness and as reviewed below otherwise noncontributory. Physical exam: General: Well-developed and well-nourished 33-year-old male. Alert and oriented. Nontoxic appearing and in no acute distress. HEENT: Atraumatic, normocephalic, pupils equal and reactive bilaterally, negative for conjunctival pallor or scleral icterus, mucous membranes moist, TMs normal bilaterally, throat clear, neck supple, nontender, trachea midline. No drooling or trismus noted. No meningeal signs. No hot potato voice noted. Lungs: Clear to auscultation, breath sounds equal bilaterally, chest nontender. Heart: S1S2, regular rate and rhythm without overt murmur Abdomen: Soft, nondistended, nontender. Negative for masses or hepatosplenomegaly. Negative for costovertebral tenderness. Pelvis: Stable nontender. Skin: Intact, warm, dry. No lesions or rashes noted. Extremities: Atraumatic, moves all extremities per self without difficulty or deficits, negative for cords or calf pain. Neurovascular unremarkable. Neuro: Awake, alert, oriented. Cranial nerves II through XII unremarkable. Cerebellum unremarkable. Motor and sensory unremarkable throughout. Exam nonfocal. Notes: Patient states he feels much improved. He states "I didn't really even want to come to the emergency room and "and is requesting discharge. Vital signs have improved. Lab work so far is unremarkable. He declines needing to void and does not want to wait for urinalysis. We discussed signs and symptoms that would prompt him to return to the emergency room. Supportive care measures were reviewed and discussed. Voices understanding and is agreeable to plan of care. Denies any further questions or concerns at this time. Diagnostics: CBC, CMP, EKG, chest x-ray, EtOH UA, drug screen Therapeutics: IV fluids Prescription: None Impression: Encounter for medical screening examination Abdominal pain, resolved Plan: 1. Please use Tylenol and/or Ibuprofen as needed for pain and fever management. 2. Get plenty of Rest. Encourage fluids to prevent dehydration. 3. Please follow up with your primary care provider. Return to the ED as needed as discussed. Definitive disposition and diagnosis as appropriate pending reevaluation and review of above. abdominal Pain Score (Numeric/FACES): 3 - Related Data Allergies Allergy/AdvReac Type Severity Reaction Status Date / Time No Known Allergies Allergy Verified 01/08/19 21:31 Home Meds: Home Meds . [No Known Home Meds] 05/13/18 [History] Past Medical History - Past Health History Medical/Surgical History: Denies Medical/Surgical History HEENT History: Reports: Impaired Vision, Other (See Below) Other HEENT History: wears glasses Cardiovascular History: Reports: Other (See Below) Other Cardiovascular History: Cardiac arrest 2017 Respiratory History: Reports: Bronchitis, Recurrent Gastrointestinal History: Reports: None Genitourinary History: Reports: None Musculoskeletal History: Reports: None Neurological History: Reports: Other (See Below) Other Neuro History: bells palsy bilateral face Psychiatric History: Reports: Anxiety Endocrine/Metabolic History: Reports: None Hematologic History: Reports: None Immunologic History: Reports: None Oncologic (Cancer) History: Reports: None Dermatologic History: Reports: None - Infectious Disease History Infectious Disease History: Reports: None - Past Surgical History Head Surgeries/Procedures: Reports: None HEENT Surgical History: Reports: None Cardiovascular Surgical History: Reports: None Respiratory Surgical History: Reports: None GI Surgical History: Reports: None Male Surgical History: Reports: None Endocrine Surgical History: Reports: None Neurological Surgical History: Reports: None Musculoskeletal Surgical History: Reports: None Oncologic Surgical History: Reports: None Dermatological Surgical History: Reports: None Social & Family History - Family History Family Medical History: Noncontributory - Caffeine Use Caffeine Use: Reports: Coffee ED ROS GENERAL - Review of Systems Review Of Systems: ROS reveals no pertinent complaints other than HPI. ED EXAM, GENERAL - Physical Exam Exam: See Below (See dictation) Course - Vital Signs Last Recorded V/S: Last Vital Signs Temp 97.7 F 01/08/19 21:31 Pulse 98 01/08/19 21:59 Resp 16 01/08/19 21:59 BP 140/95 H 01/08/19 21:59 Pulse Ox 95 01/08/19 21:59 - Orders/Labs/Meds Orders: Active Orders 24 hr Category Date Time Status EKG Documentation Completion [RC] STAT Care 01/08/19 21:36 Active Labs: Laboratory Tests 01/08/19 01/08/19 Range/Units 21:35 21:35 WBC 9.98 (4.0-11.0) K/uL RBC 5.46 (4.50-5.90) M/uL Hgb 17.6 H (13.0-17.0) g/dL Hct 49.7 (38.0-50.0) % MCV 91.0 (80.0-98.0) fL MCH 32.2 H (27.0-32.0) pg MCHC 35.4 (31.0-37.0) g/dL RDW Std Deviation 42.1 (28.0-62.0) fl RDW Coeff of Ran 13 (11.0-15.0) % Plt Count 185 (150-400) K/uL MPV 12.90 H (7.40-12.00) fL Neut % (Auto) 61.3 (48.0-80.0) % Lymph % (Auto) 24.4 (16.0-40.0) % [place] % (Auto) 12.3 (0.0-15.0) % Eos % (Auto) 1.8 (0.0-7.0) % Baso % (Auto) 0.2 (0.0-1.5) % Neut # (Auto) 6.1 H (1.4-5.7) K/uL Lymph # (Auto) 2.4 (0.6-2.4) K/uL [place]enton # (Auto) 1.2 H (0.0-0.8) K/uL Eos # (Auto) 0.2 (0.0-0.7) K/uL Baso # (Auto) 0.0 (0.0-0.1) K/uL Nucleated RBC % 0.0 /100WBC Nucleated RBCs # 0 K/uL Sodium 143 (136-148) mmol/L Potassium 3.5 (3.5-5.1) mmol/L Chloride 106 (98-107) mmol/L Carbon Dioxide 24.9 (21.0-32.0) mmol/L BUN 11 (7.0-18.0) mg/dL Creatinine 1.3 (0.8-1.3) mg/dL Est Cr Clr Drug Dosing 88.71 mL/min Estimated GFR (MDRD) > 60.0 ml/min Glucose 100 (74-106) mg/dL Calcium 8.9 (8.5-10.1) mg/dL Total Bilirubin 0.7 (0.2-1.0) mg/dL AST 24 (15-37) IU/L ALT 37 (14-63) IU/L Alkaline Phosphatase 61 (46-116) U/L Total Protein 7.7 (6.4-8.2) g/dL Albumin 4.1 (3.4-5.0) g/dL Globulin 3.6 (2.6-4.0) g/dL Albumin/Globulin Ratio 1.1 (0.9-1.6) Lipase 95 (73-393) U/L Ethyl Alcohol <3 mg/dL Meds: Medications Discontinued Medications Generic Name Dose Route Start Last Admin Trade Name Freq PRN Reason Stop Dose Admin Sodium Chloride 1,000 mls @ 999 mls/hr 01/08/19 21:36 01/08/19 21:58 Normal Saline IV 01/08/19 22:36 999 mls/hr STAT ONE Administration Departure - Departure Time of Disposition: 22:38 Disposition: Home, Self-Care 01 Clinical Impression: Encounter for medical screening examination, Resolved abdominal pain - Discharge Information Referrals: PCP,None [Primary Care Provider] - Forms: ED Department Discharge Additional Instructions: The following information is given to patients seen in the emergency department who are being discharged to home. This information is to outline your options for follow-up care. We provide all patients seen in our emergency department with a follow-up referral. The need for follow-up, as well as the timing and circumstances, are variable depending upon the specifics of your emergency department visit. If you don't have a primary care physician on staff, we will provide you with a referral. We always advise you to contact your personal physician following an emergency department visit to inform them of the circumstance of the visit and for follow-up with them and/or the need for any referrals to a consulting specialist. The emergency department will also refer you to a specialist when appropriate. This referral assures that you have the opportunity for follow-up care with a specialist. All of these measure are taken in an effort to provide you with optimal care, which includes your follow-up. Under all circumstances we always encourage you to contact your private physician who remains a resource for coordinating your care. When calling for follow-up care, please make the office aware that this follow-up is from your recent emergency room visit. If for any reason you are refused follow-up, please contact the [facility] Emergency Department at and asked to speak to the emergency department charge nurse. [facility] [address] [place] [id number] [address] [address] 1. Please use Tylenol and/or Ibuprofen as needed for pain and fever management. 2. Get plenty of Rest. Encourage fluids to prevent dehydration. 3. Please follow up with your primary care provider. Return to the ED as needed as discussed. - My Orders Last 24 Hours: My Active Orders 01/08/19 21:36 EKG Documentation Completion [RC] STAT - Assessment/Plan Last 24 Hours: My Active Orders 01/08/19 21:36 EKG Documentation Completion [RC] STAT
[2019-01-08] MEDS ORDERED: Sodium Chloride 0.9% 1,000 ML IV ONE (21:36)
[2019-01-08 22:12] LABS: BLOOD UREA NITROGEN,BUN 11 mg/dL (7.0-18.0); CARBON DIOXIDE,CO2 24.9 mmol/L (21.0-32.0); CHLORIDE,CL 106 mmol/L (98-107); GLUCOSE RANDOM 100 mg/dL (74-106); LIPASE 95 U/L (73-393); POTASSIUM,K 3.5 mmol/L (3.5-5.1); SODIUM,NA 143 mmol/L (136-148)
--- NOTE | 2019-01-08 22:18 | CR ---
Indication: Shaking Technique: Chest 1 view Comparison: December 22, 2018 Findings/Impression: Cardiovascular and mediastinum: Heart size and vasculature are normal in caliber and appearance. Mediastinum is within normal limits. Lungs and pleural space: Lungs are clear. No sign of infiltrate or mass. No sign of pleural effusion. No pneumothorax. Bones and soft tissues: No significant findings. Dictated by Katelynn Bond MD @ Jan 08 2019 10:16PM Signed by Dr. Katelynn Bond @ Jan 08 2019 10:16PM
[2019-01-08 22:40] VITALS: BP 144/87; PULSE 95
== END 2019-01-08 22:51 | disposition home or self-care (01) ==
LOC: MW.ED 21:29
DX: Z13.9 Encounter for screening, unspecified (principal)
CPT/HCPCS: 36415; 71045; 80053; 80320; 83690; 85025; 93005; 96360; 99284; J7040; 99283; G0480

== ENCOUNTER 2019-02-14 02:03 | Emergency (ER) | payer OTHER ==
[2019-02-14] MEDS ORDERED: Albuterol/Ipratropium 3.0-0.5 MG/3 ML Neb Soln NEB ONE (02:17)
--- NOTE | 2019-02-14 02:25 | EDM.PDOC ---
ED HPI GENERAL MEDICAL PROBLEM - General Chief Complaint: Respiratory Problem Stated Complaint: AMB Time Seen by Provider: 02/14/19 02:06 - History of Present Illness INITIAL COMMENTS - FREE TEXT/NARRATIVE: HISTORY AND PHYSICAL: History of present illness: The patient is a 33-year-old male who presents via EMS after experiencing an episode that started about 20-30 minutes ago where he felt like he had to : focus on his breathing" and think about his breathing and also feeling like the air that was going into his lungs was incredibly cold and was taking his breath away. He had no chest pain no abdominal pain and it wasn't shortness of breath was just a strange sensation that he had to "make himself breathe" and it felt like when he would walk out into extremely cold weather and take a deep breath through his mouth. The patient has no pulmonary history but does have a significant cardiac history of a V. fib arrest February 23 of last year for which he was transferred to [facility] and had a workup including a heart catheter which was negative and further testing done at the [facility]; all of this evaluation did not determine what triggered his event and there was discussion about getting a defibrillator placed but that never occurred. The patient does smoke cigarettes --- one pack a day for the last 14 or so years--- but denies any other drug use and has had several visits over the last one year for shaking, abdominal pain, numbness and tingling and ill-defined pain in his back. On tonight's evaluation the patient is also very vague about his symptoms but he felt that there were significant enough to call the ambulance for transport here. He has otherwise been eating and drinking normally but did have a recent cold which he got over about a week ago. He denies seasonal allergies and has no urinary complaints of neck or back pain no abdominal pain and currently does not feel short of breath. The patient says he still has the same feeling here in the ED only it is mildly better. The patient says that that after 2 visits here in December he did follow-up in our family practice residency clinic. He says that after that visit he "didn' t think like he was getting anywhere with his symptoms" and so he has not followed up again with them. He has not seen a saloon keeper since his big evaluation last fall. Overall the patient's line of thinking and answers to my questions are very vague as he strings all of the events of last year and this year together in a compilation of symptomatology but he says that tonight particular symptoms that he is experiencing he has never had before. I personally saw this patient back in December for what he described as severe upper thoracic pain and he had a negative workup ; I admitted him for an observation period and his pain improved and he was discharged. He was also seen here in December for shakiness and abdominal pain as well as being seen here in May numbness and tingling to his face and in September for right-sided chest pain which had a negative workup and he declined admission. Review of systems: As per history of present illness and below otherwise all systems reviewed and negative. Past medical history: As per history of present illness and as reviewed below otherwise noncontributory. Surgical history: As per history of present illness and as reviewed below otherwise noncontributory. Social history: No reported history of drug or alcohol abuse. Family history: As per history of present illness and as reviewed below otherwise noncontributory. Physical exam: General: Well-developed well-nourished man who is mildly overweight and vital signs were noted by me. He speaking clearly and easily in the ED without breathlessness and has no tachypnea nor hypoxia. HEENT: Atraumatic, normocephalic,, negative for conjunctival pallor or scleral icterus, mucous membranes moist, throat clear, neck supple, nontender, trachea midline. Lungs: Clear to auscultation, breath sounds equal bilaterally, chest nontender.There is no work of breathing wheezing stridor Heart: S1S2, regular, negative for clicks, rubs, or JVD. Abdomen: Soft, nondistended, nontender. Negative for masses or hepatosplenomegaly. Negative for costovertebral tenderness. Pelvis: Stable nontender. Genitourinary: Deferred. Rectal: Deferred. Extremities: Atraumatic, negative for cords or calf pain. Neurovascular unremarkable.No pedal edema or leg asymmetry Neuro: Awake, alert, oriented. Cranial nerves II through XII unremarkable. Cerebellum unremarkable. Motor and sensory unremarkable throughout. Exam nonfocal. Diagnostics: EKG chest x-ray CBC CMP d-dimer troponin Therapeutics: O2 as needed pulse ox monitor, I offered him a duo neb to see if it open his airways and made him feel like he was breathing better and he wanted to try. 0310:After the duo neb the patient continues to sound clear without any wheezing or stridor but he says he does feel like he is moving air better and feeling a little less symptomatic. He still very vague about what he is experiencing. I discussed all testing results with him and his at bedside and have offered CTA of the chest, 23 hour observation for discharge home with follow-up in the clinic with possibly more testing such as pulmonary function tests and an inhaler for home and they're currently discussing their plan choice. After discussion amongst themselves and with me again the patient would like to not be admitted to the hospital and declines the CTA of the chest and follow-up in the clinic. I have given him a spacer and a prescription for a Ventolin inhaler. He is aware of my concerns and says he will return if his symptoms return. He admits that he does have some anxiety with respect to Pop's events and has not really connected with any provider here so I've encouraged him to try again in our clinic as well as with [facility]. Impression: Dyspnea unspecified Definitive disposition and diagnosis as appropriate pending reevaluation and review of above. - Related Data Allergies Allergy/AdvReac Type Severity Reaction Status Date / Time No Known Allergies Allergy Verified 02/14/19 02:10 Home Meds: Home Meds . [No Known Home Meds] 05/13/18 [History] Past Medical History - Past Health History Medical/Surgical History: Denies Medical/Surgical History HEENT History: Reports: Impaired Vision, Other (See Below) Other HEENT History: wears glasses Cardiovascular History: Reports: Other (See Below) Other Cardiovascular History: Cardiac arrest 2017 Respiratory History: Reports: Bronchitis, Recurrent Gastrointestinal History: Reports: None Genitourinary History: Reports: None Musculoskeletal History: Reports: None Neurological History: Reports: Other (See Below) Other Neuro History: bells palsy bilateral face Psychiatric History: Reports: Anxiety Endocrine/Metabolic History: Reports: Obesity/BMI 30+ Hematologic History: Reports: None Immunologic History: Reports: None Oncologic (Cancer) History: Reports: None Dermatologic History: Reports: None - Infectious Disease History Infectious Disease History: Reports: None - Past Surgical History Head Surgeries/Procedures: Reports: None HEENT Surgical History: Reports: None Cardiovascular Surgical History: Reports: None Respiratory Surgical History: Reports: None GI Surgical History: Reports: None Male Surgical History: Reports: None Endocrine Surgical History: Reports: None Neurological Surgical History: Reports: None Musculoskeletal Surgical History: Reports: None Oncologic Surgical History: Reports: None Dermatological Surgical History: Reports: None Social & Family History - Family History Family Medical History: Noncontributory - Tobacco Use Smoking Status *Q: Current Every Day Smoker Years of Tobacco use: 14 Packs/Tins Daily: 1 - Caffeine Use Caffeine Use: Reports: Coffee - Recreational Drug Use Recreational Drug Use: No ED ROS GENERAL - Review of Systems Review Of Systems: ROS reveals no pertinent complaints other than HPI. ED EXAM, GENERAL - Physical Exam Exam: See Below (See dictation) Course - Vital Signs Last Recorded V/S: Last Vital Signs Temp 36.8 C 02/14/19 02:03 Pulse 106 H 02/14/19 02:03 Resp 20 02/14/19 02:03 BP 133/94 H 02/14/19 02:03 Pulse Ox 94 L 02/14/19 02:03 - Orders/Labs/Meds Orders: Active Orders 24 hr Category Date Time Status Cardiac Monitoring [RC] . DIRECTED Care 02/14/19 02:18 Active EKG Documentation Completion [RC] STAT Care 02/14/19 02:18 Active Pulse Oximetry [RC] ASDIRECTED Care 02/14/19 02:18 Active RT Aerosol Therapy [RC] ASDIRECTED Care 02/14/19 02:17 Active Labs: Laboratory Tests 02/14/19 02/14/19 02/14/19 Range/Units 02:25 02:25 02:25 WBC 8.17 (4.0-11.0) K/uL RBC 5.13 (4.50-5.90) M/uL Hgb 16.2 (13.0-17.0) g/dL Hct 46.5 (38.0-50.0) % MCV 90.6 (80.0-98.0) fL MCH 31.6 (27.0-32.0) pg MCHC 34.8 (31.0-37.0) g/dL RDW Std Deviation 41.8 (28.0-62.0) fl RDW Coeff of Ran 13 (11.0-15.0) % Plt Count 180 (150-400) K/uL MPV 12.00 (7.40-12.00) fL Neut % (Auto) 47.7 L (48.0-80.0) % Lymph % (Auto) 36.8 (16.0-40.0) % Wright % (Auto) 10.4 (0.0-15.0) % Eos % (Auto) 4.9 (0.0-7.0) % Baso % (Auto) 0.2 (0.0-1.5) % Neut # (Auto) 3.9 (1.4-5.7) K/uL Lymph # (Auto) 3.0 H (0.6-2.4) K/uL Wright # (Auto) 0.9 H (0.0-0.8) K/uL Eos # (Auto) 0.4 (0.0-0.7) K/uL Baso # (Auto) 0.0 (0.0-0.1) K/uL Nucleated RBC % 0.0 /100WBC Nucleated RBCs # 0 K/uL D-Dimer, Quantitative < 0.19 (0.0-0.50) mg/L FEU Sodium 141 (136-148) mmol/L Potassium 3.8 (3.5-5.1) mmol/L Chloride 106 (98-107) mmol/L Carbon Dioxide 22.7 (21.0-32.0) mmol/L BUN 11 (7.0-18.0) mg/dL Creatinine 1.2 (0.8-1.3) mg/dL Est Cr Clr Drug Dosing 96.10 mL/min Estimated GFR (MDRD) > 60.0 ml/min Glucose 106 (74-106) mg/dL Calcium 8.1 L (8.5-10.1) mg/dL Total Bilirubin 0.4 (0.2-1.0) mg/dL AST 22 (15-37) IU/L ALT 42 (14-63) IU/L Alkaline Phosphatase 63 (46-116) U/L Troponin I < 0.050 (0.000-0.056) ng/mL Total Protein 6.8 (6.4-8.2) g/dL Albumin 3.6 (3.4-5.0) g/dL Globulin 3.2 (2.6-4.0) g/dL Albumin/Globulin Ratio 1.1 (0.9-1.6) Meds: Medications Discontinued Medications Generic Name Dose Route Start Last Admin Trade Name Niya PRN Reason Stop Dose Admin Albuterol/Ipratropium 3 ml 02/14/19 02:17 02/14/19 02:23 Duoneb 3.0-0.5 Mg/3 Ml NEB 02/14/19 02:18 3 ml ONETIME ONE Administration Departure - Departure Time of Disposition: 03:30 Disposition: Home, Self-Care 01 Condition: Good Clinical Impression: Dyspnea Qualifiers: Dyspnea type: unspecified Qualified Code(s): R06.00 - Dyspnea, unspecified - Discharge Information Referrals: PCP,None [Primary Care Provider] - Forms: ED Department Discharge Additional Instructions: The following information is given to patients seen in the emergency department who are being discharged to home. This information is to outline your options for follow-up care. We provide all patients seen in our emergency department with a follow-up referral. The need for follow-up, as well as the timing and circumstances, are variable depending upon the specifics of your emergency department visit. If you don't have a primary care physician on staff, we will provide you with a referral. We always advise you to contact your personal physician following an emergency department visit to inform them of the circumstance of the visit and for follow-up with them and/or the need for any referrals to a consulting specialist. The emergency department will also refer you to a specialist when appropriate. This referral assures that you have the opportunity for followup care with a specialist. All of these measure are taken in an effort to provide you with optimal care, which includes your followup. Under all circumstances we always encourage you to contact your private physician who remains a resource for coordinating your care. When calling for followup care, please make the office aware that this follow-up is from your recent emergency room visit. If for any reason you are refused follow-up, please contact the [facility] emergency department at and ask to speak to the emergency department charge nurse. Primary care- Internal Medicine and Family [address] [address] [address] [place] [address] Please call and schedule a follow-up appointment in one of the clinics using resources given to above. Make sure to discuss with them carin's events and specifically telling your new provider that he would like to quit smoking and to help you with resources to do such and also discussed possible further testing of your lungs such as pulmonary function tests. Please continue to monitor your symptoms and return to ER as needed and as discussed. Use the inhaler you have been given a prescription for with the spacer as was demonstrated in the ED for any shortness of breath or spastic cough as well as any feelings of wheezing or difficulty breathing. - My Orders Last 24 Hours: My Active Orders 02/14/19 02:17 RT Aerosol Therapy [RC] ASDIRECTED 02/14/19 02:18 Cardiac Monitoring [RC] . DIRECTED EKG Documentation Completion [RC] STAT Pulse Oximetry [RC] ASDIRECTED - Assessment/Plan Last 24 Hours: My Active Orders 02/14/19 02:17 RT Aerosol Therapy [RC] ASDIRECTED 02/14/19 02:18 Cardiac Monitoring [RC] . DIRECTED EKG Documentation Completion [RC] STAT Pulse Oximetry [RC] ASDIRECTED
[2019-02-14 02:52] LABS: BLOOD UREA NITROGEN,BUN 11 mg/dL (7.0-18.0); CARBON DIOXIDE,CO2 22.7 mmol/L (21.0-32.0); CHLORIDE,CL 106 mmol/L (98-107); GLUCOSE RANDOM 106 mg/dL (74-106); POTASSIUM,K 3.8 mmol/L (3.5-5.1); SODIUM,NA 141 mmol/L (136-148)
--- NOTE | 2019-02-14 03:08 | CR ---
INDICATION: Pain, shortness of breath COMPARISON: None TECHNIQUE: Frontal and lateral views of the chest FINDINGS: The lungs are clear. There is no pleural effusion or pneumothorax. The cardiomediastinal silhouette is normal. The osseous structures are unremarkable. IMPRESSION: No acute process. Dictated by Mela Whitehead MD @ Feb 14 2019 3:05AM Signed by Dr. Mela Whitehead @ Feb 14 2019 3:05AM
[2019-02-14 03:39] VITALS: BP 116/65; PULSE 88
== END 2019-02-14 03:35 | disposition home or self-care (01) ==
LOC: MW.ED 02:03
DX: R06.00 Dyspnea, unspecified (principal); F17.210 Nicotine dependence, cigarettes, uncomplicated; E66.9 Obesity, unspecified; Z68.36 Body mass index [BMI] 36.0-36.9, adult
CPT/HCPCS: 36415; 71046; 71046-26; 80053; 84484; 85025; 85379; 93005; 94640; 99285-25; J7620-GY

== ENCOUNTER 2019-10-01 02:10 | Observation (INO) | payer OTHER ==
[2019-10-01] MEDS ORDERED: Sodium Chloride 0.9% 2.5 ML Syringe FLUSH PRN (02:22)
[2019-10-01] MEDS ORDERED: Sodium Chloride 0.9% 10 ML Syringe FLUSH PRN (02:22)
--- NOTE | 2019-10-01 02:25 | EDM.PDOC ---
ED HPI GENERAL MEDICAL PROBLEM - General Chief Complaint: Cardiovascular Problem Stated Complaint: HEADACHE, PAIN DOWN BOTH SIDES OF JAW/NECK Time Seen by Provider: 10/01/19 02:21 Source of Information: Reports: Patient History Limitations: Reports: No Limitations - History of Present Illness INITIAL COMMENTS - FREE TEXT/NARRATIVE: 33-year-old male with history of cardiac arrest presents with headache and chest pain and jaw pain. He was preparing to go to sleep 2 hours prior to arrival and started feeling a gradual onset progressive worsening pressure sensation in his occiput, at that time rated at 4/10. He then subsequently developed pressure sensation in his jaw and throat, and then followed by a burning discomfort sensation in his substernal. Currently his headache has resolved and his chest discomfort is rated at 1/10. He was clammy and nauseous when he was symptomatic. He denies any blurry vision, murmur trauma, palpitation, shortness of breath, vomiting, diarrhea, abdominal pain, back pain. ROS: A 10-point review of systems, other than pertinent positives and negatives as stated per HPI, is otherwise negative PHYSICAL EXAM General: AOx4, GCS = 15, No distress HEENT: dry mucous membrane Neck: supple, no meningismus, no Kernig or Brudzinski Cardiac: S1S2 RRR Respiratory: CTAB, no crackles or rales, no wheezing Abdomen: Soft, nontender, no rebound or guarding, nondistended, no pulsatile mass. Back: nontender Musculoskeletal: NVI distally, no deformity Neuro: No focal deficits, CN 2 - 12 WNL. neck and jaw Pain Score (Numeric/FACES): 4 - Related Data Allergies Allergy/AdvReac Type Severity Reaction Status Date / Time No Known Allergies Allergy Verified 10/01/19 02:35 Home Meds: Home Meds . [No Known Home Meds] 05/13/18 [History] Past Medical History - Past Health History Medical/Surgical History: Denies Medical/Surgical History HEENT History: Reports: Impaired Vision, Other (See Below) Other HEENT History: wears glasses Cardiovascular History: Reports: Other (See Below) Other Cardiovascular History: Cardiac arrest 2017 Respiratory History: Reports: Bronchitis, Recurrent Gastrointestinal History: Reports: None Genitourinary History: Reports: None Musculoskeletal History: Reports: None Neurological History: Reports: Other (See Below) Other Neuro History: bells palsy bilateral face Psychiatric History: Reports: Anxiety Endocrine/Metabolic History: Reports: Obesity/BMI 30+ Hematologic History: Reports: None Immunologic History: Reports: None Oncologic (Cancer) History: Reports: None Dermatologic History: Reports: None - Infectious Disease History Infectious Disease History: Reports: None - Past Surgical History Head Surgeries/Procedures: Reports: None HEENT Surgical History: Reports: None Cardiovascular Surgical History: Reports: None Respiratory Surgical History: Reports: None GI Surgical History: Reports: None Male Surgical History: Reports: None Endocrine Surgical History: Reports: None Neurological Surgical History: Reports: None Musculoskeletal Surgical History: Reports: None Oncologic Surgical History: Reports: None Dermatological Surgical History: Reports: None Social & Family History - Family History Family Medical History: Noncontributory - Caffeine Use Caffeine Use: Reports: Coffee ED ROS GENERAL - Review of Systems Review Of Systems: Comprehensive ROS is negative, except as noted in HPI. ED EXAM, GENERAL - Physical Exam Exam: See Below (see dictation) EKG INTERPRETATION EKG Interpretation Comments: 81 Bpm, NSR, normal QRS interval, no STEMI. EKG and rhythm strip [place] at 0212 Course - Vital Signs Last Recorded V/S: Last Vital Signs Temp 98.1 F 10/01/19 02:20 Pulse 73 10/01/19 04:40 Resp 18 10/01/19 04:40 BP 122/80 10/01/19 04:40 Pulse Ox 93 L 10/01/19 04:40 - Orders/Labs/Meds Orders: Active Orders 24 hr Category Date Time Status Admission Status [Patient Status] [ADT] Stat ADT 10/01/19 05:07 Ordered Cardiac Monitoring [RC] . DIRECTED Care 10/01/19 02:22 Active EKG Documentation Completion [RC] STAT Care 10/01/19 02:22 Active Pulse Oximetry [RC] ASDIRECTED Care 10/01/19 02:22 Active Sodium Chloride 0.9% [Saline Flush] Med 10/01/19 02:22 Active 10 ml FLUSH ASDIRECTED PRN Sodium Chloride 0.9% [Saline Flush] Med 10/01/19 02:22 Active 2.5 ml FLUSH ASDIRECTED PRN Saline Lock Insert [OM.PC] Stat Oth 10/01/19 02:22 Ordered Medication Orders Sodium Chloride (Saline Flush) 10 ml FLUSH ASDIRECTED PRN PRN Reason: Keep Vein Open Sodium Chloride (Saline Flush) 2.5 ml FLUSH ASDIRECTED PRN PRN Reason: Keep Vein Open Labs: Laboratory Tests 10/01/19 10/01/19 10/01/19 Range/Units 02:16 02:16 02:16 WBC 10.17 (4.0-11.0) K/uL RBC 5.61 (4.50-5.90) M/uL Hgb 18.2 H (13.0-17.0) g/dL Hct 52.0 H (38.0-50.0) % MCV 92.7 (80.0-98.0) fL MCH 32.4 H (27.0-32.0) pg MCHC 35.0 (31.0-37.0) g/dL RDW Std Deviation 43.9 (28.0-62.0) fl RDW Coeff of Ran 13 (11.0-15.0) % Plt Count 180 (150-400) K/uL MPV 12.80 H (7.40-12.00) fL Neut % (Auto) 48.3 (48.0-80.0) % Lymph % (Auto) 34.3 (16.0-40.0) % Barton % (Auto) 12.4 (0.0-15.0) % Eos % (Auto) 4.7 (0.0-7.0) % Baso % (Auto) 0.3 (0.0-1.5) % Neut # (Auto) 4.9 (1.4-5.7) K/uL Lymph # (Auto) 3.5 H (0.6-2.4) K/uL Barton # (Auto) 1.3 H (0.0-0.8) K/uL Eos # (Auto) 0.5 (0.0-0.7) K/uL Baso # (Auto) 0.0 (0.0-0.1) K/uL Nucleated RBC % 0.0 /100WBC Nucleated RBCs # 0 K/uL INR 0.89 Sodium 139 (136-148) mmol/L Potassium 3.6 (3.5-5.1) mmol/L Chloride 102 (98-107) mmol/L Carbon Dioxide 28.5 (21.0-32.0) mmol/L BUN 14 (7.0-18.0) mg/dL Creatinine 1.3 (0.8-1.3) mg/dL Est Cr Clr Drug Dosing TNP Estimated GFR (MDRD) > 60.0 ml/min Glucose 108 H (74-106) mg/dL Calcium 8.3 L (8.5-10.1) mg/dL Total Bilirubin 0.2 (0.2-1.0) mg/dL AST 25 (15-37) IU/L ALT 43 (14-63) IU/L Alkaline Phosphatase 77 (46-116) U/L Troponin I <0.050 (0.000-0.056) ng/mL Total Protein 7.3 (6.4-8.2) g/dL Albumin 3.8 (3.4-5.0) g/dL Globulin 3.5 (2.6-4.0) g/dL Albumin/Globulin Ratio 1.1 (0.9-1.6) 10/01/19 Range/Units 04:10 WBC (4.0-11.0) K/uL RBC (4.50-5.90) M/uL Hgb (13.0-17.0) g/dL Hct (38.0-50.0) % MCV (80.0-98.0) fL MCH (27.0-32.0) pg MCHC (31.0-37.0) g/dL RDW Std Deviation (28.0-62.0) fl RDW Coeff of Ran (11.0-15.0) % Plt Count (150-400) K/uL MPV (7.40-12.00) fL Neut % (Auto) (48.0-80.0) % Lymph % (Auto) (16.0-40.0) % Barton % (Auto) (0.0-15.0) % Eos % (Auto) (0.0-7.0) % Baso % (Auto) (0.0-1.5) % Neut # (Auto) (1.4-5.7) K/uL Lymph # (Auto) (0.6-2.4) K/uL Barton # (Auto) (0.0-0.8) K/uL Eos # (Auto) (0.0-0.7) K/uL Baso # (Auto) (0.0-0.1) K/uL Nucleated RBC % /100WBC Nucleated RBCs # K/uL INR Sodium (136-148) mmol/L Potassium (3.5-5.1) mmol/L Chloride (98-107) mmol/L Carbon Dioxide (21.0-32.0) mmol/L BUN (7.0-18.0) mg/dL Creatinine (0.8-1.3) mg/dL Est Cr Clr Drug Dosing Estimated GFR (MDRD) ml/min Glucose (74-106) mg/dL Calcium (8.5-10.1) mg/dL Total Bilirubin (0.2-1.0) mg/dL AST (15-37) IU/L ALT (14-63) IU/L Alkaline Phosphatase (46-116) U/L Troponin I <0.050 (0.000-0.056) ng/mL Total Protein (6.4-8.2) g/dL Albumin (3.4-5.0) g/dL Globulin (2.6-4.0) g/dL Albumin/Globulin Ratio (0.9-1.6) Meds: Medications Generic Name Dose Route Start Last Admin Trade Name Freq PRN Reason Stop Dose Admin Sodium Chloride 10 ml 10/01/19 02:22 Saline Flush FLUSH ASDIRECTED PRN Keep Vein Open Sodium Chloride 2.5 ml 10/01/19 02:22 Saline Flush FLUSH ASDIRECTED PRN Keep Vein Open Discontinued Medications Generic Name Dose Route Start Last Admin Trade Name Freq PRN Reason Stop Dose Admin Iopamidol 80 ml 10/01/19 04:36 10/01/19 04:37 Isovue-370 (76%) IVPUSH 10/01/19 04:37 80 ml ONETIME STA Administration Iopamidol 80 ml 10/01/19 04:36 10/01/19 04:37 Isovue-370 (76%) IVPUSH 10/01/19 04:37 80 ml ONETIME STA Administration - Re-Assessments/Exams Free Text/Narrative Re-Assessment/Exam: 10/01/19 05:[address] Fernandez, who agrees to admit to obs/tele. She will assume care at this point. The hospitalist's documentation supersedes all other documentation on this patient with regard to any conflicts or discrepancies from this point forward. Any emergency conditions have been treated to the ability of the ED prior to admission. Departure - Departure Time of Disposition: 05:09 Disposition: Refer to Observation Condition: Good Clinical Impression: Chest pain Referrals: PCP,None [Primary Care Provider] - Forms: ED Department Discharge Sepsis Event Note (ED) - Focused Exam Vital Signs: Vital Signs Temp Pulse Resp BP Pulse Ox 10/01/19 04:40 73 18 122/80 93 L 10/01/19 04:10 74 132/83 94 L 10/01/19 03:16 85 20 118/80 95 10/01/19 02:20 98.1 F 77 16 116/82 94 L - My Orders Last 24 Hours: My Active Orders 10/01/19 02:22 Cardiac Monitoring [RC] . DIRECTED EKG Documentation Completion [RC] STAT Pulse Oximetry [RC] ASDIRECTED Sodium Chloride 0.9% [Saline Flush] 10 ml FLUSH ASDIRECTED PRN Sodium Chloride 0.9% [Saline Flush] 2.5 ml FLUSH ASDIRECTED PRN Saline Lock Insert [OM.PC] Stat 10/01/19 05:07 Admission Status [Patient Status] [ADT] Stat - Assessment/Plan Last 24 Hours: My Active Orders 10/01/19 02:22 Cardiac Monitoring [RC] . DIRECTED EKG Documentation Completion [RC] STAT Pulse Oximetry [RC] ASDIRECTED Sodium Chloride 0.9% [Saline Flush] 10 ml FLUSH ASDIRECTED PRN Sodium Chloride 0.9% [Saline Flush] 2.5 ml FLUSH ASDIRECTED PRN Saline Lock Insert [OM.PC] Stat 10/01/19 05:07 Admission Status [Patient Status] [ADT] Stat
[2019-10-01 02:43] LABS: BLOOD UREA NITROGEN,BUN 14 mg/dL (7.0-18.0); CARBON DIOXIDE,CO2 28.5 mmol/L (21.0-32.0); CHLORIDE,CL 102 mmol/L (98-107); GLUCOSE RANDOM 108 mg/dL (74-106); POTASSIUM,K 3.6 mmol/L (3.5-5.1); SODIUM,NA 139 mmol/L (136-148)
--- NOTE | 2019-10-01 03:17 | CR ---
INDICATION: Chest pain COMPARISON: Two-view chest radiographs 02/14/2019 TECHNIQUE: Frontal and lateral views of the chest FINDINGS: The lungs are clear. There is no pleural effusion or pneumothorax. The cardiomediastinal silhouette is normal. The osseous structures are unremarkable. IMPRESSION: No acute intrathoracic process. Dictated by Mela Whitehead MD @ Oct 01 2019 3:14AM Signed by Dr. Mela Whitehead @ Oct 01 2019 3:15AM
[2019-10-01] MEDS ORDERED: Iopamidol 755 Mg/ML 100 ML Bottle IVPUSH STA ×2 (04:36)
--- NOTE | 2019-10-01 04:37 | CT ---
Indication: Substernal chest pain, rule out dissection Technique: Contrast enhanced imaging through the chest acquired in the angiographic phase of enhancement. 80 mL Isovue 370 contrast agent was administered. Sagittal and coronal reconstructions are provided. Comparison: None Findings: There is normal caliber of the thoracic aorta. There is no evidence of aortic dissection. The great arch branch vessel origins are patent. The main pulmonary artery is nondilated. The heart is nonenlarged. There is no pericardial effusion. There is no mediastinal lymphadenopathy. The lungs are clear. There is no pleural effusion or pneumothorax. The visualized upper abdomen is unremarkable. Impression: No evidence of aortic dissection. Please note that all CT scans at this facility use dose modulation, iterative reconstruction, and/or weight-based dosing when appropriate to reduce radiation dose to as low as reasonably achievable. Dictated by Mela Whitehead MD @ Oct 01 2019 4:33AM Signed by Dr. Mela Whitehead @ Oct 01 2019 4:37AM
--- NOTE | 2019-10-01 04:41 | CT ---
INDICATION: Headache, neck pain. TECHNIQUE: After standard noncontrast head CT, high resolution axial CT images acquired through the head and neck following rapid intravenous administration of iodinated contrast. Multiplanar MIPS of cranial and cervical vasculature performed. FINDINGS: Noncontrast head CT: There is no intracranial hemorrhage or fluid collection. The richardson-white matter differentiation is maintained. The ventricles are of normal morphology. The basal cisterns are clear. CTA head: There is normal filling of the intracranial vasculature; i.e. there is no large vessel occlusion or significant intracranial stenosis. There is no cerebral aneurysm or evidence for vascular malformation. CTA neck: Both carotid and vertebral arteries have a normal course and caliber. The soft tissues of the neck are within normal limits. The cervical spine is in normal alignment. The lung apices are clear. IMPRESSION: Unremarkable CT head, CTA head and neck. Cam Martines MD Neurointerventional Radiologist [facility] Please note that all CT scans at this facility use dose modulation, iterative reconstruction, and/or weight-based dosing when appropriate to reduce radiation dose to as low as reasonably achievable. Dictated by Cam Martines MD @ Oct 01 2019 8:35AM Signed by Dr. Cam Martines @ Oct 01 2019 8:46AM
[2019-10-01] MEDS ORDERED: Albuterol/Ipratropium 3.0-0.5 MG/3 ML Neb Soln NEB PRN (05:30)
[2019-10-01] MEDS ORDERED: Morphine 2 MG/ML Syringe IVPUSH PRN (05:30)
--- NOTE | 2019-10-01 07:41 | PCM.HP.2 ---
<Ava Andrews - Last Filed: 10/01/19 14:34> H&P History of Present Illness - General Date of Service: 10/01/19 Admit Problem/Dx: Admission Diagnosis/Problem Admission Diagnosis/Problem Chest pain Source of Information: Patient History Limitations: Reports: No Limitations - History of Present Illness Initial Comments - Free Text/Narative: Patient is a 33-year-old male with history of cardiac arrest presents in 2018 of unknown etiology with headache and chest pain and jaw pain. He was preparing to go to sleep 2 hours prior to arrival and started feeling a gradual onset progressive worsening pressure sensation in his occiput, at that time rated at 4/10. He then subsequently developed pressure sensation in his jaw and throat, and then followed by a burning discomfort sensation in his substernal. Currently his headache has resolved and his chest discomfort is rated at 1/10. He was clammy and nauseous when he was symptomatic. He denies any blurry vision, murmur trauma, palpitation, shortness of breath, vomiting, diarrhea, abdominal pain, back pain. ED course :recieved ASA. EKG NSR. Head CTA,Chest CTA negative. troponin x 3 negative Bedside: no acute smyptoms; states he is feeling better now. neck and jaw Pain Score (Numeric/FACES): 4 - Related Data Allergies/Adverse Reactions: Allergies Allergy/AdvReac Type Severity Reaction Status Date / Time No Known Allergies Allergy Verified 10/01/19 08:10 Home Medications: Home Meds Aspirin 81 mg PO DAILY tab.chew 10/01/19 [Rx] atorvaSTATin [Lipitor] 40 mg PO BEDTIME #30 tablet 10/01/19 [Rx] gemfibroziL [Lopid] 600 mg PO BIDAC #60 tablet 10/01/19 [Rx] Past Medical History - Past Health History Medical/Surgical History: Denies Medical/Surgical History HEENT History: Reports: Impaired Vision, Other (See Below) Other HEENT History: wears glasses Cardiovascular History: Reports: Other (See Below) Other Cardiovascular History: Cardiac arrest 2017 Respiratory History: Reports: Bronchitis, Recurrent Gastrointestinal History: Reports: None Genitourinary History: Reports: None Musculoskeletal History: Reports: None Neurological History: Reports: Other (See Below) Other Neuro History: bells palsy bilateral face Psychiatric History: Reports: Anxiety Endocrine/Metabolic History: Reports: Obesity/BMI 30+ Hematologic History: Reports: None Immunologic History: Reports: None Oncologic (Cancer) History: Reports: None Dermatologic History: Reports: None - Infectious Disease History Infectious Disease History: Reports: None - Past Surgical History Head Surgeries/Procedures: Reports: None HEENT Surgical History: Reports: None Cardiovascular Surgical History: Reports: None Respiratory Surgical History: Reports: None GI Surgical History: Reports: None Male Surgical History: Reports: None Endocrine Surgical History: Reports: None Neurological Surgical History: Reports: None Musculoskeletal Surgical History: Reports: None Oncologic Surgical History: Reports: None Dermatological Surgical History: Reports: None Social & Family History - Family History Family Medical History: Noncontributory - Tobacco Use Smoking Status *Q: Current Every Day Smoker Years of Tobacco use: 15 Packs/Tins Daily: 1 - Caffeine Use Caffeine Use: Reports: Coffee - Recreational Drug Use Recreational Drug Use: No H&P Review of Systems - Review of Systems: Review Of Systems: See Below General: Reports: No Symptoms HEENT: Reports: No Symptoms Pulmonary: Reports: No Symptoms Cardiovascular: Reports: No Symptoms Gastrointestinal: Reports: No Symptoms Genitourinary: Reports: No Symptoms Musculoskeletal: Reports: No Symptoms Skin: Reports: No Symptoms Psychiatric: Reports: No Symptoms Neurological: Reports: Pre-Existing Deficit. Denies: Confusion, Dizziness, Headache Exam - Exam Exam: See Below - Vital Signs Vital Signs: Last Vital Signs Temp 97.5 F 10/01/19 06:00 Pulse 85 10/01/19 06:00 Resp 16 10/01/19 06:00 BP 119/83 10/01/19 06:00 Pulse Ox 96 10/01/19 06:00 Weight: 115.9 kg - Exam Quality Assessment: No: Supplemental Oxygen General: Alert, Oriented, Cooperative HEENT: EOMI Neck: Supple, Trachea Midline Lungs: Clear to Auscultation, Normal Respiratory Effort Cardiovascular: Regular Rhythm GI/Abdominal Exam: Soft Back Exam: Normal Inspection, Full Range of Motion Skin: Warm, Dry Neurological: Cranial Nerves Intact, Other (b/l facial palsy at baseline ) Neuro Extensive - Mental Status: Alert, Oriented x3, Normal Mood/Affect Neuro Extensive - Motor, Sensory, Reflexes: CN II-XII Intact, Normal Gait - Patient Data Lab Results Last 24 hrs: Laboratory Results - last 24 hr 06/10/01/19 10/01/19 Range/Units 02:16 02:16 02:16 WBC 10.17 (4.0-11.0) K/uL RBC 5.61 (4.50-5.90) M/uL Hgb 18.2 H (13.0-17.0) g/dL Hct 52.0 H (38.0-50.0) % MCV 92.7 (80.0-98.0) fL MCH 32.4 H (27.0-32.0) pg MCHC 35.0 (31.0-37.0) g/dL RDW Std Deviation 43.9 (28.0-62.0) fl RDW Coeff of Ran 13 (11.0-15.0) % Plt Count 180 (150-400) K/uL MPV 12.80 H (7.40-12.00) fL Neut % (Auto) 48.3 (48.0-80.0) % Lymph % (Auto) 34.3 (16.0-40.0) % Evans % (Auto) 12.4 (0.0-15.0) % Eos % (Auto) 4.7 (0.0-7.0) % Baso % (Auto) 0.3 (0.0-1.5) % Neut # (Auto) 4.9 (1.4-5.7) K/uL Lymph # (Auto) 3.5 H (0.6-2.4) K/uL Evans # (Auto) 1.3 H (0.0-0.8) K/uL Eos # (Auto) 0.5 (0.0-0.7) K/uL Baso # (Auto) 0.0 (0.0-0.1) K/uL Nucleated RBC % 0.0 /100WBC Nucleated RBCs # 0 K/uL INR 0.89 Sodium 139 (136-148) mmol/L Potassium 3.6 (3.5-5.1) mmol/L Chloride 102 (98-107) mmol/L Carbon Dioxide 28.5 (21.0-32.0) mmol/L BUN 14 (7.0-18.0) mg/dL Creatinine 1.3 (0.8-1.3) mg/dL Est Cr Clr Drug Dosing TNP Estimated GFR (MDRD) > 60.0 ml/min Glucose 108 H (74-106) mg/dL Calcium 8.3 L (8.5-10.1) mg/dL Total Bilirubin 0.2 (0.2-1.0) mg/dL AST 25 (15-37) IU/L ALT 43 (14-63) IU/L Alkaline Phosphatase 77 (46-116) U/L Troponin I <0.050 (0.000-0.056) ng/mL Total Protein 7.3 (6.4-8.2) g/dL Albumin 3.8 (3.4-5.0) g/dL Globulin 3.5 (2.6-4.0) g/dL Albumin/Globulin Ratio 1.1 (0.9-1.6) 10/01/19 Range/Units 04:10 WBC (4.0-11.0) K/uL RBC (4.50-5.90) M/uL Hgb (13.0-17.0) g/dL Hct (38.0-50.0) % MCV (80.0-98.0) fL MCH (27.0-32.0) pg MCHC (31.0-37.0) g/dL RDW Std Deviation (28.0-62.0) fl RDW Coeff of Ran (11.0-15.0) % Plt Count (150-400) K/uL MPV (7.40-12.00) fL Neut % (Auto) (48.0-80.0) % Lymph % (Auto) (16.0-40.0) % Evans % (Auto) (0.0-15.0) % Eos % (Auto) (0.0-7.0) % Baso % (Auto) (0.0-1.5) % Neut # (Auto) (1.4-5.7) K/uL Lymph # (Auto) (0.6-2.4) K/uL Evans # (Auto) (0.0-0.8) K/uL Eos # (Auto) (0.0-0.7) K/uL Baso # (Auto) (0.0-0.1) K/uL Nucleated RBC % /100WBC Nucleated RBCs # K/uL INR Sodium (136-148) mmol/L Potassium (3.5-5.1) mmol/L Chloride (98-107) mmol/L Carbon Dioxide (21.0-32.0) mmol/L BUN (7.0-18.0) mg/dL Creatinine (0.8-1.3) mg/dL Est Cr Clr Drug Dosing Estimated GFR (MDRD) ml/min Glucose (74-106) mg/dL Calcium (8.5-10.1) mg/dL Total Bilirubin (0.2-1.0) mg/dL AST (15-37) IU/L ALT (14-63) IU/L Alkaline Phosphatase (46-116) U/L Troponin I <0.050 (0.000-0.056) ng/mL Total Protein (6.4-8.2) g/dL Albumin (3.4-5.0) g/dL Globulin (2.6-4.0) g/dL Albumin/Globulin Ratio (0.9-1.6) Result Diagrams: 10/01/19 02:16 10/01/19 02:16 Sepsis Event Note - Evaluation Sepsis Screening Result: No Definite Risk - Focused Exam Vital Signs: Vital Signs Temp Pulse Resp BP Pulse Ox 10/01/19 06:00 97.5 F 85 16 119/83 96 10/01/19 05:55 97.8 F 72 18 120/68 93 L 10/01/19 05:20 69 15 115/78 91 L 10/01/19 04:40 73 18 122/80 93 L 10/01/19 04:10 74 132/83 94 L 10/01/19 03:16 85 20 118/80 95 10/01/19 02:20 98.1 F 77 16 116/82 94 L Date Exam was Performed: 10/01/19 Time Exam was Performed: 14:34 Problem List Initiated/Reviewed/Updated: Yes Orders Last 24hrs: Active Orders 24 hr Category Date Time Status Admission Status [Patient Status] [ADT] Stat ADT 10/01/19 05:07 Active Ambulate [RC] ASDIRECTED Care 10/01/19 05:28 Active Antiembolic Devices [RC] PER UNIT ROUTINE Care 10/01/19 05:26 Active Notify Provider [RC] PRN Care 10/01/19 05:29 Active RT Aerosol Therapy [RC] ASDIRECTED Care 10/01/19 05:30 Active Telemetry Monitoring [Cardiac Monitoring] [RC] Q8H Care 10/01/19 05:28 Active Vital Signs [RC] Q4H Care 10/01/19 08:00 Active Heart Healthy Diet [DIET] Diet 10/01/19 Breakfast Active GLYCOSYLATED HEMOGLOBIN,HGBA1C [CHEM] Routine Lab 10/01/19 07:40 Ordered LIPID PANEL [CHEM] Routine Lab 10/01/19 07:40 Ordered TROPONIN I [CHEM] Routine Lab 10/01/19 07:15 Received TROPONIN I [CHEM] Stat Lab 10/01/19 10:00 Ordered Albuterol/Ipratropium [DuoNeb 3.0-0.5 MG/3 ML] Med 10/01/19 05:30 Active 3 ml NEB Q4HRRT PRN Aspirin Med 10/01/19 09:00 Active 81 mg PO DAILY Morphine Sulfate [Morphine] Med 10/01/19 05:30 Active 1 mg IVPUSH Q4H PRN Sodium Chloride 0.9% [Saline Flush] Med 10/01/19 02:22 Active 10 ml FLUSH ASDIRECTED PRN Sodium Chloride 0.9% [Saline Flush] Med 10/01/19 02:22 Active 2.5 ml FLUSH ASDIRECTED PRN atorvaSTATin [Lipitor] Med 10/01/19 21:00 Active 40 mg PO BEDTIME SCD [Sequential Compression Device] [OM.PC] Routine Oth 10/01/19 05:26 Ordered Saline Lock Insert [OM.PC] Stat Oth 10/01/19 02:22 Ordered Medication Orders Albuterol/Ipratropium (Duoneb 3.0-0.5 Mg/3 Ml) 3 ml NEB Q4HRRT PRN PRN Reason: Shortness of Breath Aspirin (Aspirin) 81 mg PO DAILY MICHAEL Atorvastatin Calcium (Lipitor) 40 mg PO BEDTIME MICHAEL Morphine Sulfate (Morphine) 1 mg IVPUSH Q4H PRN PRN Reason: Pain Sodium Chloride (Saline Flush) 10 ml FLUSH ASDIRECTED PRN PRN Reason: Keep Vein Open Sodium Chloride (Saline Flush) 2.5 ml FLUSH ASDIRECTED PRN PRN Reason: Keep Vein Open Assessment/Plan Comment:: Assessment: 1. CP w/ ACS concerns. 2. Acute onset Headache 3. PMH: B/l facial palsy Hector palsy. Previous history of Cardiac arrest in 2018 of unknown etiology 4. Hypertriglyceridemia Plan. Patient was admitted to observation. Full code. Telemetry. EKG NSR. troponin x 4 negative. Increasing triglycerides level . Initiated on Gemfibrozil 600 mg BID. Advised to follow up with PCP Head CTA,chest cta negative. Advised to follow up with PCP in 1 -week; rx sent for repeat labs in week. Advised to also get a h. pylori exam due to history of GERD w.o thorough evaluation. Patient was discharged this afternoon; stable condition. Patient requesting discharge. <Justino Fernandez - Last Filed: 10/03/19 19:42> H&P History of Present Illness - General Admit Problem/Dx: Admission Diagnosis/Problem Admission Diagnosis/Problem Chest pain Exam - Vital Signs Vital Signs: Last Vital Signs Temp 36.2 C 10/01/19 08:00 Pulse 73 10/01/19 08:00 Resp 14 10/01/19 08:00 BP 111/70 10/01/19 08:00 Pulse Ox 94 L 10/01/19 08:00 - Patient Data Result Diagrams: 10/01/19 02:16 10/01/19 02:16 Sepsis Event Note - Focused Exam Date Exam was Performed: 10/03/19 Time Exam was Performed: 19:41 Assessment/Plan Comment:: I performed a history and physical exam of the patient and discussed management with resident. I have reviewed the residents note and agree with documented find ings and plan unless otherwise specified in my note.
[2019-10-01 08:04] VITALS: BP 111/70; PULSE 73
[2019-10-01 08:33] LABS: HEMOGLOBIN A1C 5.3 % (4.5-6.2)
[2019-10-01] MEDS ORDERED: Aspirin 81 MG Tab.Chew PO SCH (09:00)
[2019-10-01] MEDS ORDERED: Gemfibrozil 600 MG Tab PO SCH (17:00)
[2019-10-01] MEDS ORDERED: atorvaSTATin 40 MG Tab PO SCH (21:00)
== END 2019-10-01 12:05 | disposition home or self-care (01) ==
LOC: MW.ED 02:10 → MW.MS 05:07
PROVIDERS: ADMIT Student in an Organized Health Care Education/Training Program; ATTEND Student in an Organized Health Care Education/Training Program
DX: R07.2 Precordial pain (principal); R51 Headache; R68.84 Jaw pain; E78.1 Pure hyperglyceridemia; G51.0 Bell's palsy; E66.9 Obesity, unspecified; F41.9 Anxiety disorder, unspecified; F17.210 Nicotine dependence, cigarettes, uncomplicated; Z86.74 Personal history of sudden cardiac arrest; Z79.82 Long term (current) use of aspirin; Z79.899 Other long term (current) drug therapy; Z68.34 Body mass index [BMI] 34.0-34.9, adult
CPT/HCPCS: 36415; 70496; 70498; 71046; 71275; 80053; 80061; 83036; 84484; 85025; 85610; A9270; G0378; Q9967; 99283; 99285-25

== ENCOUNTER 2020-05-19 20:32 | Emergency (ER) | payer OTHER ==
--- NOTE | 2020-05-19 20:38 | EDM.PDOC ---
ED HPI GENERAL MEDICAL PROBLEM - General Stated Complaint: ANXIETY Time Seen by Provider: 05/19/20 20:33 Source of Information: Reports: Patient, EMS History Limitations: Reports: No Limitations - History of Present Illness INITIAL COMMENTS - FREE TEXT/NARRATIVE: 24-year-old male with history of HLD, remote cardiac arrest woke up from his nap after his called just prior to arrival, he felt like he could not breathe, and he had palpitations, so he then hung up the phone and sat next to an open door getting cold air from outside so he could cool down. He felt nauseous. He denied fever, chills, chest pain, abdominal pain. He currently does not feel shortness of breath anymore. When EMS arrived he was shivering, he was given warm IV fluids. ROS: A 10-point review of systems, other than pertinent positives and negatives as stated per HPI, is otherwise negative Past medical history: No additional pertinent history Past Surgical history: No additional pertinent history Social history: No additional pertinent history Family history: No additional pertinent history PHYSICAL EXAM General: AOx4, GCS = 15, No distress HEENT: dry mucous membrane Neck: supple, no meningismus, no Kernig or Brudzinski Cardiac: S1S2 RRR Respiratory: CTAB, no crackles or rales, no wheezing Abdomen: Soft, nontender, no rebound or guarding, nondistended, no pulsatile mass. Back: nontender Musculoskeletal: NVI distally, no deformity Neuro: No focal deficits, CN 2 - 12 WNL. - Related Data Allergies Allergy/AdvReac Type Severity Reaction Status Date / Time No Known Allergies Allergy Verified 05/19/20 20:40 Home Meds: Home Meds atorvaSTATin [Lipitor] 40 mg PO 05/19/20 [History] ED ROS GENERAL - Review of Systems Review Of Systems: See Below (see dictation) ED EXAM, GENERAL - Physical Exam Exam: See Below (see dictation) #1 Interpretation EKG Interpretation Comments: Heart rate = 106 bpm, sinus tachycardia, normal QRS interval, no STEMI. EKG and rhythm strip interpreted by me at 2023 Course - Vital Signs Last Recorded V/S: Last Vital Signs Temp 98.0 F 05/19/20 20:36 Pulse 90 05/19/20 21:42 Resp 18 05/19/20 20:36 BP 120/65 05/19/20 21:42 Pulse Ox 99 05/19/20 21:42 - Orders/Labs/Meds Orders: Active Orders 24 hr Category Date Time Status Cardiac Monitoring [RC] . DIRECTED Care 05/19/20 20:39 Active EKG Documentation Completion [RC] STAT Care 05/19/20 20:39 Active Pulse Oximetry [RC] ASDIRECTED Care 05/19/20 20:39 Active Sodium Chloride 0.9% [Saline Flush] Med 05/19/20 20:39 Active 10 ml FLUSH ASDIRECTED PRN Sodium Chloride 0.9% [Saline Flush] Med 05/19/20 20:39 Active 2.5 ml FLUSH ASDIRECTED PRN Saline Lock Insert [OM.PC] Stat Oth 05/19/20 20:39 Ordered Medication Orders Sodium Chloride (Saline Flush) 10 ml FLUSH ASDIRECTED PRN PRN Reason: Keep Vein Open Last Admin: 05/19/20 20:48 Dose: 10 ml Documented by: DEONTE Sodium Chloride (Saline Flush) 2.5 ml FLUSH ASDIRECTED PRN PRN Reason: Keep Vein Open Last Admin: 05/19/20 20:48 Dose: 2.5 ml Documented by: DEONTE Labs: Laboratory Tests 05/19/20 05/19/20 05/19/20 Range/Units 21:13 21:13 21:13 WBC 9.05 (4.0-11.0) K/uL RBC 5.06 (4.50-5.90) M/uL Hgb 16.3 (13.0-17.0) g/dL Hct 46.4 (38.0-50.0) % MCV 91.7 (80.0-98.0) fL MCH 32.2 H (27.0-32.0) pg MCHC 35.1 (31.0-37.0) g/dL RDW Std Deviation 41.9 (28.0-62.0) fl RDW Coeff of Ran 13 (11.0-15.0) % Plt Count 168 (150-400) K/uL MPV 12.60 H (7.40-12.00) fL Neut % (Auto) 57.3 (48.0-80.0) % Lymph % (Auto) 27.8 (16.0-40.0) % [place] % (Auto) 11.0 (0.0-15.0) % Eos % (Auto) 3.8 (0.0-7.0) % Baso % (Auto) 0.1 (0.0-1.5) % Neut # (Auto) 5.2 (1.4-5.7) K/uL Lymph # (Auto) 2.5 H (0.6-2.4) K/uL [place] # (Auto) 1.0 H (0.0-0.8) K/uL Eos # (Auto) 0.3 (0.0-0.7) K/uL Baso # (Auto) 0.0 (0.0-0.1) K/uL Nucleated RBC % 0.0 /100WBC Nucleated RBCs # 0 K/uL D-Dimer, Quantitative < 0.19 (0.0-0.50) mg/L FEU Sodium 141 (136-148) mmol/L Potassium 3.8 (3.5-5.1) mmol/L Chloride 107 (98-107) mmol/L Carbon Dioxide 23.8 (21.0-32.0) mmol/L BUN 11 (7.0-18.0) mg/dL Creatinine 1.0 (0.8-1.3) mg/dL Est Cr Clr Drug Dosing 114.24 mL/min Estimated GFR (MDRD) > 60.0 ml/min Glucose 118 H (74-106) mg/dL Calcium 8.4 L (8.5-10.1) mg/dL Magnesium 1.9 (1.8-2.4) mg/dL Total Bilirubin 0.2 (0.2-1.0) mg/dL AST 28 (15-37) IU/L ALT 41 (14-63) IU/L Alkaline Phosphatase 58 (46-116) U/L Troponin I < 0.050 (0.000-0.056) ng/mL Total Protein 6.8 (6.4-8.2) g/dL Albumin 3.7 (3.4-5.0) g/dL Globulin 3.1 (2.6-4.0) g/dL Albumin/Globulin Ratio 1.2 (0.9-1.6) Meds: Medications Generic Name Dose Route Start Last Admin Trade Name Sameerq PRN Reason Stop Dose Admin Sodium Chloride 10 ml 05/19/20 20:39 05/19/20 20:48 Saline Flush FLUSH 10 ml ASDIRECTED PRN Administration Keep Vein Open Sodium Chloride 2.5 ml 05/19/20 20:39 05/19/20 20:48 Saline Flush FLUSH 2.5 ml ASDIRECTED PRN Administration Keep Vein Open - Re-Assessments/Exams Free Text/Narrative Re-Assessment/Exam: 05/19/20 21:49 After IV fluids in the ER, the patient improved and is currently stable for discharge. He does not feel anxious anymore. I performed a repeat exam and did not appreciate new abnormal findings. Patient exhibits normal vital signs and has a normal gait on road test. I advised the patient to return to the ER for reevaluation if symptoms worsened, including fever, worsening pain, or any other worrisome symptoms. I instructed the patient to follow up with their PCP within 2-3 days. MEDICAL DECISION MAKING: I reviewed the patients past medical records, lab and radiographic findings. I discussed the case with the patient. My differential diagnosis included: Anxiety, arrhythmia, ACS. Clinical history and presentation is consistent with anxiety, he calmed down by the time he arrived in the ER, symptoms resolved with resting and IV fluids. His EKG and troponin were unremarkable, his D-dimer was unremarkable, I do not suspect atypical chest pain or PE or DVT. EKG did not demonstrate arrhythmia. His heart score is of low risk, amendable for outpatient follow-up with his PCP. Departure - Departure Time of Disposition: 21:50 Disposition: Home, Self-Care 01 Condition: Good Clinical Impression: Anxiety - Discharge Information *PRESCRIPTION DRUG MONITORING PROGRAM REVIEWED*: Not Applicable *COPY OF PRESCRIPTION DRUG MONITORING REPORT IN PATIENT NANO: Not Applicable Instructions: Managing Anxiety, Adult Referrals: PCP,None [Primary Care Provider] - 3 Days Forms: ED Department Discharge Additional Instructions: The need for follow-up, as well as the timing and circumstances, are variable depending upon the specifics of your emergency department visit. If you don't have a primary care physician on staff, we will provide you with a referral. We always advise you to contact your personal physician following an emergency department visit to inform them of the circumstance of the visit and for follow-up with them and/or the need for any referrals to a consulting specialist. The emergency department will also refer you to a specialist when appropriate. This referral assures that you have the opportunity for follow-up care with a specialist. All of these measure are taken in an effort to provide you with optimal care, which includes your follow-up. Under all circumstances we always encourage you to contact your private physician who remains a resource for coordinating your care. When calling for follow-up care, please make the office aware that this follow-up is from your recent emergency room visit. If for any reason you are refused follow-up, please contact the [facility] Emergency Department at and asked to speak to the emergency department charge nurse. If you do not have a primary care doctor, please follow up with the clinics below within 3-5 days. [facility] [address] [place] [id number] [facility] [address] [place] [id number] Sepsis Event Note (ED) - Focused Exam Vital Signs: Vital Signs Temp Pulse Resp BP Pulse Ox 05/19/20 21:42 90 120/65 99 05/19/20 20:36 98.0 F 104 H 18 151/88 H 94 L - My Orders Last 24 Hours: My Active Orders 05/19/20 20:39 Cardiac Monitoring [RC] . DIRECTED EKG Documentation Completion [RC] STAT Pulse Oximetry [RC] ASDIRECTED Sodium Chloride 0.9% [Saline Flush] 10 ml FLUSH ASDIRECTED PRN Sodium Chloride 0.9% [Saline Flush] 2.5 ml FLUSH ASDIRECTED PRN Saline Lock Insert [OM.PC] Stat - Assessment/Plan Last 24 Hours: My Active Orders 05/19/20 20:39 Cardiac Monitoring [RC] . DIRECTED EKG Documentation Completion [RC] STAT Pulse Oximetry [RC] ASDIRECTED Sodium Chloride 0.9% [Saline Flush] 10 ml FLUSH ASDIRECTED PRN Sodium Chloride 0.9% [Saline Flush] 2.5 ml FLUSH ASDIRECTED PRN Saline Lock Insert [OM.PC] Stat
[2020-05-19] MEDS ORDERED: Sodium Chloride 0.9% 10 ML Syringe FLUSH PRN (20:39)
[2020-05-19] MEDS ORDERED: Sodium Chloride 0.9% 2.5 ML Syringe FLUSH PRN (20:39)
--- NOTE | 2020-05-19 21:37 | CR ---
INDICATION: Shortness of breath TECHNIQUE: Chest 1 view. COMPARISON: None available FINDINGS: The heart is normal in size. The pulmonary vasculature is within normal limits. The lungs are clear. IMPRESSION: No acute process. Dictated by Neelima Angeles MD @ May 19 2020 9:36PM Signed by Dr. Neelima Angeles @ May 19 2020 9:36PM
[2020-05-19 21:43] VITALS: BP 120/65; PULSE 90
[2020-05-19 21:45] LABS: BLOOD UREA NITROGEN,BUN 11 mg/dL (7.0-18.0); CARBON DIOXIDE,CO2 23.8 mmol/L (21.0-32.0); CHLORIDE,CL 107 mmol/L (98-107); GLUCOSE RANDOM 118 mg/dL (74-106); POTASSIUM,K 3.8 mmol/L (3.5-5.1); SODIUM,NA 141 mmol/L (136-148)
== END 2020-05-19 21:56 | disposition home or self-care (01) ==
LOC: EDBD 20:32 → MW.ED 20:32 → MERGE 20:32 → MW.ED 21:56
DX: F41.9 Anxiety disorder, unspecified (principal); E78.5 Hyperlipidemia, unspecified; Z79.899 Other long term (current) drug therapy
CPT/HCPCS: 36415; 71045; 71045-26; 80053; 83735; 84484; 85025; 85379; 93005; 93010; 99283; 99285-25

== ENCOUNTER 2020-08-21 11:45 | Emergency (ER) | payer OTHER ==
--- NOTE | 2020-08-21 11:55 | PCM.EKG ---
#1 Interpretation EKG Date: 08/21/20 Time: 11:49 Rhythm: NSR Rate (Beats/Min): 108 [place]: Normal P-Wave: Present QRS: Normal ST-T: Normal QT: Normal Comparison: No Change (05/19/20) EKG Interpretation Comments: Sinus Tachycardia
[2020-08-21] MEDS ORDERED: Sodium Chloride 0.9% 1,000 ML IV ONE ×2 (12:02→13:29)
[2020-08-21 12:25] LABS: BLOOD UREA NITROGEN,BUN 14 mg/dL (7.0-18.0); CARBON DIOXIDE,CO2 26.4 mmol/L (21.0-32.0); CHLORIDE,CL 102 mmol/L (98-107); GLUCOSE RANDOM 128 mg/dL (74-106); LIPASE 98 U/L (73-393); POTASSIUM,K 3.9 mmol/L (3.5-5.1); SODIUM,NA 139 mmol/L (136-148)
--- NOTE | 2020-08-21 12:41 | CR ---
INDICATION: Palpitations. TECHNIQUE: Chest 1 view. COMPARISON: Chest radiograph 05/19/2020. FINDINGS: No focal consolidation, pleural effusion, or pneumothorax. Normal heart size and pulmonary vascularity. Slight elevation of the right hemidiaphragm. The bones are unremarkable. IMPRESSION: No acute cardiopulmonary findings. Dictated by Maricarmen Little MD @ 08/21/2020 12:40:[address] Maricarmen Little @ Aug 21 2020 12:40PM
--- NOTE | 2020-08-21 13:52 | EDM.PDOC ---
ED HPI GENERAL MEDICAL PROBLEM - General Chief Complaint: Cardiovascular Problem Stated Complaint: FEELS ODD Time Seen by Provider: 08/21/20 11:52 Source of Information: Reports: Patient History Limitations: Reports: No Limitations - History of Present Illness INITIAL COMMENTS - FREE TEXT/NARRATIVE: HISTORY AND PHYSICAL: History of present illness: Patient is a 34-year-old male who presents emergency room today with concern of "feeling odd "that has been occurring for the past 1 week. Patient states that he is having episodes of "feeling odd "but he is unable to fully describe but states that slightly he feels like his heart will be racing and he feels anxious during the events. Patient states that he has been anxious about his health since a prior cardiac arrest to years ago which he states he has had a "full evaluation "including scans of his heart and told that he does not have any blockages or any heart issues. Patient states that 2 years ago he had a sudden cardiac arrest that required CPR and was "shocked "by the ambulance and states that he came back to life. Patient states that he was encouraged to get a defibrillator/ICD placed by cardiology but he declined this because "they did not know what was wrong with him "so he did not feel he should jump to a defibrillator. Patient states that since then he has been healthy and has not had any events since but states that he has had extensive anxiety about his health. Patient describes these odd sensations as possible panic attacks stating that he will feel his heart race really anxious about his health Patient states that he has had an increase of these episodes over the past 1 week. Patient denies any associated chest pain or shortness of breath. Patient denies any other symptoms or concerns. Patient denies fever, chills, chest pain, shortness of breath, or cough. Denies headache, neck stiff ness, change in vision, syncope, or near syncope. Denies nausea, vomiting, abdominal pain, diarrhea, constipation, or dysuria. Has not noted any blood in urine or stool. Patient has been eating and drinking appropriately. Review of systems: As per history of present illness and below otherwise all systems reviewed and negative. Past medical history: As per history of present illness and as reviewed below otherwise noncontributory. Surgical history: As per history of present illness and as reviewed below otherwise noncontributory. Social history: See social history for further information Family history: As per history of present illness and as reviewed below otherwise noncon tributory. Physical exam: General: Patient is alert, oriented, and in no acute distress. Patient sitting comfortably on exam table; mildly anxious. Mildly tachycardic 100-110s on exam otherwise vitally stable and reviewed by me. HEENT: Atraumatic, normocephalic, pupils equal and reactive bilaterally, negative for conjunctival pallor or scleral icterus, mucous membranes moist, TMs normal bilaterally, throat clear, neck supple, nontender, trachea midline. No drooling or trismus noted. No meningeal signs. No hot potato voice noted. Lungs: Clear to auscultation, breath sounds equal bilaterally, chest nontender. Heart: S1S2, regular rate and rhythm without overt murmur Abdomen: Soft, nondistended, nontender. Negative for masses or hepatosplenomegaly. Negative for costovertebral tenderness. Pelvis: Stable nontender. Genitourinary: Deferred. Rectal: Deferred. Skin: Intact, warm, dry. No lesions or rashes noted. Extremities: Atraumatic, negative for cords or calf pain. Neurovascular unremark able. Neuro: Awake, alert, oriented. Cranial nerves II through XII unremarkable. Cerebellum unremarkable. Motor and sensory unremarkable throughout. Exam nonfocal. Notes: Patient is a 34-year-old male with a history of prior cardiac arrest 2 years ago, who presents emergency room today secondary to with "feeling odd " and palpitation episodes over the past 1 week. Upon arrival to the ED, patient is mildly tachycardic 100s to 110s on exam and does appear mildly anxious. Will perform cardiac evaluation, initiate a fluid bolus, and reassess patient. CBC today shows mild erythrocytosis with a hemoglobin of 18.2 and hematocrit of 51.6 otherwise mild derangements unremarkable. CMP shows an elevated glucose at 128, otherwise unremarkable. D-dimer is normal with less 0.19. Troponin is negative. Lipase within normal limits. Urinalysis is clear. Chest x-ray shows no acute cardiopulmonary findings. Upon reevaluation of patient, his mild tachycardia has resolved and is now 85-90 bpm following fluid bolus. I did perform bedside orthostatic vitals and found to be mildly positive with an increase in HR from 85bmp sitting to 110bmp standing and blood pressure 136s/86 to 110/70 from sitting to standing. Will initiate another 1 L fluid bolus and reassess patient. Upon reevaluation of patient, he expresses resolution of his symptoms today in the ED. Strict return precautions thoroughly discussed with patient. Signs and symptoms are prompt return to the ED thoroughly discussed with patient. Discussed importance for follow-up with primary care provider as well as his electrolysis engineer. Voices understanding and is agreeable to plan of care. Denies any further questions or concerns at this time. Diagnostics: CBC, CMP, EKG, Trop, Ddimer, CXR Therapeutics: NS x 2 Prescription: None Impression: Palpitations Dehydration Plan: 1. Encourage small but frequent sips of fluid to prevent dehydration. 2. Follow-up with a electrolysis engineer and your primary care provider as discussed. Return to the ED as needed and as discussed. Definitive disposition and diagnosis as appropriate pending reevaluation and review of above. - Related Data Allergies Allergy/AdvReac Type Severity Reaction Status Date / Time No Known Allergies Allergy Verified 05/20/20 08:18 Home Meds: Home Meds Aspirin 81 mg PO DAILY tab.chew 10/01/19 [Rx] atorvaSTATin [Lipitor] 40 mg PO BEDTIME #30 tablet 10/01/19 [Rx] gemfibroziL [Lopid] 600 mg PO BIDAC #60 tablet 10/01/19 [Rx] atorvaSTATin [Lipitor] 40 mg PO 05/19/20 [History] Past Medical History - Past Health History Medical/Surgical History: Denies Medical/Surgical History HEENT History: Reports: Impaired Vision, Other (See Below) Other HEENT History: wears glasses Cardiovascular History: Reports: High Cholesterol, Other (See Below), Prior Cardiac Arrest Other Cardiovascular History: Cardiac arrest 2017 Respiratory History: Reports: Bronchitis, Recurrent Gastrointestinal History: Reports: None Genitourinary History: Reports: None Musculoskeletal History: Reports: None Neurological History: Reports: Other (See Below) Other Neuro History: bells palsy bilateral face Psychiatric History: Reports: Anxiety, Depression, Panic Attack Endocrine/Metabolic History: Reports: Obesity/BMI 30+ Hematologic History: Reports: None Immunologic History: Reports: None Oncologic (Cancer) History: Reports: None Dermatologic History: Reports: None - Infectious Disease History Infectious Disease History: Reports: None - Past Surgical History Head Surgeries/Procedures: Reports: None HEENT Surgical History: Reports: None Cardiovascular Surgical History: Reports: None Respiratory Surgical History: Reports: None GI Surgical History: Reports: None Male Surgical History: Reports: None Endocrine Surgical History: Reports: None Neurological Surgical History: Reports: None Musculoskeletal Surgical History: Reports: None Oncologic Surgical History: Reports: None Dermatological Surgical History: Reports: None Social & Family History - Family History Family Medical History: No Pertinent Family History - Tobacco Use Tobacco Use Status *Q: Current Every Day Tobacco User Years of Tobacco use: 15 Packs/Tins Daily: 0.5 - Caffeine Use Caffeine Use: Reports: None - Recreational Drug Use Recreational Drug Use: No ED ROS GENERAL - Review of Systems Review Of Systems: Comprehensive ROS is negative, except as noted in HPI. ED EXAM, GENERAL - Physical Exam Exam: See Below (see dictation) Course - Vital Signs Last Recorded V/S: Last Vital Signs Temp 98.2 F 08/21/20 12:44 Pulse 93 08/21/20 14:31 Resp 18 08/21/20 13:35 BP 128/67 08/21/20 14:31 Pulse Ox 96 08/21/20 14:31 - Orders/Labs/Meds Labs: Laboratory Tests 08/21/20 08/21/20 08/21/20 Range/Units 11:50 11:50 12:15 WBC 9.44 (4.0-11.0) K/uL RBC 5.64 (4.50-5.90) M/uL Hgb 18.2 H (13.0-17.0) g/dL Hct 51.6 H (38.0-50.0) % MCV 91.5 (80.0-98.0) fL MCH 32.3 H (27.0-32.0) pg MCHC 35.3 (31.0-37.0) g/dL RDW Std Deviation 41.9 (28.0-62.0) fl RDW Coeff of Ran 13 (11.0-15.0) % Plt Count 214 (150-400) K/uL MPV 12.60 H (7.40-12.00) fL Neut % (Auto) 54.8 (48.0-80.0) % Lymph % (Auto) 33.1 (16.0-40.0) % Smyth % (Auto) 7.8 (0.0-15.0) % Eos % (Auto) 4.0 (0.0-7.0) % Baso % (Auto) 0.3 (0.0-1.5) % Neut # (Auto) 5.2 (1.4-5.7) K/uL Lymph # (Auto) 3.1 H (0.6-2.4) K/uL Smyth # (Auto) 0.7 (0.0-0.8) K/uL Eos # (Auto) 0.4 (0.0-0.7) K/uL Baso # (Auto) 0.0 (0.0-0.1) K/uL Nucleated RBC % 0.0 /100WBC Nucleated RBCs # 0 K/uL D-Dimer, Quantitative < 0.19 (0.0-0.50) mg/L FEU Sodium 139 (136-148) mmol/L Potassium 3.9 (3.5-5.1) mmol/L Chloride 102 (98-107) mmol/L Carbon Dioxide 26.4 (21.0-32.0) mmol/L BUN 14 (7.0-18.0) mg/dL Creatinine 1.3 (0.8-1.3) mg/dL Est Cr Clr Drug Dosing TNP Estimated GFR (MDRD) > 60.0 ml/min Glucose 128 H (74-106) mg/dL Calcium 8.6 (8.5-10.1) mg/dL Total Bilirubin 0.6 (0.2-1.0) mg/dL AST 26 (15-37) IU/L ALT 44 (14-63) IU/L Alkaline Phosphatase 67 (46-116) U/L Troponin I < 0.050 (0.000-0.056) ng/mL Total Protein 7.7 (6.4-8.2) g/dL Albumin 4.1 (3.4-5.0) g/dL Globulin 3.6 (2.6-4.0) g/dL Albumin/Globulin Ratio 1.1 (0.9-1.6) Lipase 98 (73-393) U/L Urine Color Urine Appearance Urine pH (5.0-8.0) Ur Specific Shoshone (1.001-1.035) Urine Protein (NEGATIVE) mg/dL Urine Glucose (UA) (NEGATIVE) mg/dL Urine Ketones (NEGATIVE) mg/dL Urine Occult Blood (NEGATIVE) Urine Nitrite (NEGATIVE) Urine Bilirubin (NEGATIVE) Urine Urobilinogen (<2.0) EU/dL Ur Leukocyte Esterase (NEGATIVE) 08/21/20 Range/Units 12:30 WBC (4.0-11.0) K/uL RBC (4.50-5.90) M/uL Hgb (13.0-17.0) g/dL Hct (38.0-50.0) % MCV (80.0-98.0) fL MCH (27.0-32.0) pg MCHC (31.0-37.0) g/dL RDW Std Deviation (28.0-62.0) fl RDW Coeff of Ran (11.0-15.0) % Plt Count (150-400) K/uL MPV (7.40-12.00) fL Neut % (Auto) (48.0-80.0) % Lymph % (Auto) (16.0-40.0) % Smyth % (Auto) (0.0-15.0) % Eos % (Auto) (0.0-7.0) % Baso % (Auto) (0.0-1.5) % Neut # (Auto) (1.4-5.7) K/uL Lymph # (Auto) (0.6-2.4) K/uL Smyth # (Auto) (0.0-0.8) K/uL Eos # (Auto) (0.0-0.7) K/uL Baso # (Auto) (0.0-0.1) K/uL Nucleated RBC % /100WBC Nucleated RBCs # K/uL D-Dimer, Quantitative (0.0-0.50) mg/L FEU Sodium (136-148) mmol/L Potassium (3.5-5.1) mmol/L Chloride (98-107) mmol/L Carbon Dioxide (21.0-32.0) mmol/L BUN (7.0-18.0) mg/dL Creatinine (0.8-1.3) mg/dL Est Cr Clr Drug Dosing Estimated GFR (MDRD) ml/min Glucose (74-106) mg/dL Calcium (8.5-10.1) mg/dL Total Bilirubin (0.2-1.0) mg/dL AST (15-37) IU/L ALT (14-63) IU/L Alkaline Phosphatase (46-116) U/L Troponin I (0.000-0.056) ng/mL Total Protein (6.4-8.2) g/dL Albumin (3.4-5.0) g/dL Globulin (2.6-4.0) g/dL Albumin/Globulin Ratio (0.9-1.6) Lipase (73-393) U/L Urine Color YELLOW Urine Appearance CLEAR Urine pH 5.5 (5.0-8.0) Ur Specific Shoshone 1.025 (1.001-1.035) Urine Protein NEGATIVE (NEGATIVE) mg/dL Urine Glucose (UA) NEGATIVE (NEGATIVE) mg/dL Urine Ketones NEGATIVE (NEGATIVE) mg/dL Urine Occult Blood NEGATIVE (NEGATIVE) Urine Nitrite NEGATIVE (NEGATIVE) Urine Bilirubin NEGATIVE (NEGATIVE) Urine Urobilinogen 0.2 (<2.0) EU/dL Ur Leukocyte Esterase NEGATIVE (NEGATIVE) Meds: Medications Discontinued Medications Generic Name Dose Route Start Last Admin Trade Name Niya PRN Reason Stop Dose Admin Sodium Chloride 1,000 mls @ 999 mls/hr 08/21/20 12:02 08/21/20 12:09 Normal Saline IV 08/21/20 13:02 999 mls/hr BOLUS ONE Administration Sodium Chloride 1,000 mls @ 999 mls/hr 08/21/20 13:29 08/21/20 13:32 Normal Saline IV 08/21/20 14:29 999 mls/hr STAT ONE Administration Departure - Departure Time of Disposition: 13:50 Disposition: Home, Self-Care 01 Clinical Impression: Dehydration, Palpitations - Discharge Information Instructions: Dehydration, Adult, [id number], Palpitations, [id number] Referrals: Ovidio Cohen MD [Primary Care Provider] - Forms: ED Department Discharge Additional Instructions: The following information is given to patients seen in the emergency department who are being discharged to home. This information is to outline your options for follow-up care. We provide all patients seen in our emergency department with a follow-up referral. The need for follow-up, as well as the timing and circumstances, are variable depending upon the specifics of your emergency department visit. If you don't have a primary care physician on staff, we will provide you with a referral. We always advise you to contact your personal physician following an emergency department visit to inform them of the circumstance of the visit and for follow-up with them and/or the need for any referrals to a consulting specialist. The emergency department will also refer you to a specialist when appropriate. This referral assures that you have the opportunity for follow-up care with a specialist. All of these measure are taken in an effort to provide you with optimal care, which includes your follow-up. Under all circumstances we always encourage you to contact your private physician who remains a resource for coordinating your care. When calling for follow-up care, please make the office aware that this follow-up is from your recent emergency room visit. If for any reason you are refused follow-up, please contact the [facility] Emergency Department at and asked to speak to the emergency department charge nurse. [facility] Primary Care / Cardiology [address] [place], [place] [id number] [facility] [address] [place] [id number] 1. Encourage small but frequent sips of fluid to prevent dehydration. 2. Follow-up with a electrolysis engineer and your primary care provider as discussed. Return to the ED as needed and as discussed. Sepsis Event Note (ED) - Evaluation Sepsis Screening Result: No Definite Risk - Focused Exam Vital Signs: Vital Signs Temp Pulse Resp BP Pulse Ox 08/21/20 14:31 93 128/67 96 08/21/20 13:35 86 18 107/74 97 08/21/20 12:44 98.2 F 110 H 20 122/87 98 08/21/20 11:50 98.0 F 108 H 18 131/86 98
[2020-08-21 14:31] VITALS: BP 128/67; PULSE 93
== END 2020-08-21 14:32 | disposition home or self-care (01) ==
LOC: MW.ED 11:45
DX: R00.2 Palpitations (principal); E86.0 Dehydration; Z72.0 Tobacco use; E66.9 Obesity, unspecified; E78.00 Pure hypercholesterolemia, unspecified; Z79.82 Long term (current) use of aspirin; Z79.899 Other long term (current) drug therapy; Z68.35 Body mass index [BMI] 35.0-35.9, adult
CPT/HCPCS: 36415; 71045; 80053; 81003; 83690; 84484; 85025; 85379; 93005; 99285; J7030; 93010; 99283

== ENCOUNTER 2020-08-25 21:26 | Emergency (ER) | payer OTHER ==
[2020-08-25] MEDS ORDERED: Sodium Chloride 0.9% 10 ML Syringe FLUSH PRN (21:39)
[2020-08-25] MEDS ORDERED: Sodium Chloride 0.9% 2.5 ML Syringe FLUSH PRN (21:39)
[2020-08-25] MEDS ORDERED: Sodium Chloride 0.9% 1,000 ML IV ONE (21:39)
[2020-08-25 22:18] LABS: BLOOD UREA NITROGEN,BUN 13 mg/dL (7.0-18.0); CARBON DIOXIDE,CO2 24.4 mmol/L (21.0-32.0); GLUCOSE RANDOM 116 mg/dL (74-106)
[2020-08-25 22:23] LABS: CHLORIDE,CL 103 mmol/L (98-107); POTASSIUM,K 3.9 mmol/L (3.5-5.1); SODIUM,NA 141 mmol/L (136-148)
--- NOTE | 2020-08-25 22:26 | EDM.PDOC ---
ED HPI GENERAL MEDICAL PROBLEM - General Chief Complaint: Cardiovascular Problem Stated Complaint: HEART RACING Time Seen by Provider: 08/25/20 21:39 - History of Present Illness INITIAL COMMENTS - FREE TEXT/NARRATIVE: HISTORY AND PHYSICAL: History of present illness: This is a 34-year-old gentleman with a history significant for cardiac arrest several years ago who presents to the ER today secondary to palpitations, numbness and tingling throughout his entire body, nausea, that started earlier today after taking to the new medications. Patient reports that he was started on Zoloft for his anxiety as well as both Wellbutrin for his cigarette smoking. Patient reports that he did not realize he was supposed take both medicines at the same time and took both of them together and shortly thereafter started feeling his heart racing which led to him having what he described as a panic attack. Patient denies any recent fevers, shakes, chills, vomiting, diarrhea, dysuria, frequency, urgency. Patient denies any shortness of breath. Patient has any chest pain, abdominal pain, back pain, extremity pain. Patient denies any visual changes. Patient denies any slurring the speech. Patient denies any weakness to his upper and lower extremities. Patient denies any diaphoresis. Patient reports the symptoms lasted for approximately 45 minutes. Patient's reports that the symptoms are very similar to his prior anxiety attacks which is why his doctor started him on Zoloft. Review of systems: As per history of present illness and below otherwise all systems reviewed and negative. Past medical history: As per history of present illness and as reviewed below otherwise noncontributory. Surgical history: As per history of present illness and as reviewed below otherwise noncontributory. Social history: No reported history of drug abuse. Family history: As per history of present illness and as reviewed below otherwise noncontributory. Physical exam: This patient was seen and evaluated during the 2019 SARS-CoV-2 novel coronavirus pandemic period. Community viral transmission is ongoing at time of this encounter and the emergency department is operating under pandemic response procedures. Constitutional: Patient is oriented to person, place, and time. Appears well- developed and well-nourished. No distress. HEENT: Moist mucous membranes Head: Normocephalic and atraumatic Eyes: Right eye exhibits no discharge. Left eye exhibits no discharge. No scleral icterus Neck: Normal range of motion. No tracheal deviation present. Cardiovascular: Normal rate and regular rhythm. Pulmonary: Effort normal, no respiratory distress. Abdominal: No distention Musculoskeletal: Normal range of motion Neurologic: Alert and oriented to person, place and time. Skin: [place], warm and dry. Psychiatric: Normal mood and affect. Behavior is normal. Judgment and thought content normal. Nursing note and vital signs have been reviewed Diagnostics: EKG: As interpreted by ER physician: Camelia: Nonspecific ST-T wave abnormalities Normal axis No evidence of ST elevation IN Normal sinus tachycardia heart rate of 108 Chest Xray: Normal cardiac silhouette No infiltrates or effusions identified. No PTX No evidence of acute bony fracture. As interpreted by ER MD: Camelia CBC, CMP, troponin, TSH all within normal limits. Therapeutics: NSS x1 L Assessment and plan: This is a 34-year-old gentleman who presents ER today secondary to palpitations. Patient reports that he took his Wellbutrin and Zoloft at the same time today which were 2 new medications for him shortly prior to the symptoms starting. While in the ED, the patient did receive 1 L of NSS and while sitting here he reports that his symptoms have completely resolved and he feels much better. Patient's EKG did not reveal any abnormal rhythms other than his tachycardia. Patient's heart rate has been running between 80 to 90 bpm however when I do enter the room the patient's heart rate does go up to 95 100 bpm. At this time, I discussed with the patient not taking her Wellbutrin and to just take the Zoloft for his anxiety and to talk to his doctor about slowly introducing Wellbutrin once his body is more used to the Zoloft. Patient is otherwise clinically hemodynamically stable. Patient feels comfortable with this plan and feels comfortable with going home at this time. Patient's is at bedside and she has no further questions and feels very comfortable the plan as well. Reassessment at the time of disposition demonstrates that the patient is in no acute distress. The patient has remained stable throughout the entire ED visit and is without objective evidence for acute process requiring urgent intervention or hospitalization. The patient is stable for discharge, counseling is provided as documented above, discussed symptomatic treatment and specific conditions for return. Patient's repeat blood pressure is also improved to 140/86. I have spoken with the patient/caregiver and discussed todays findings, in addition to providing specific details for the plan of care. Questions are answered and there is agreement with the plan. Definitive disposition and diagnosis as appropriate pending reevaluation and review of above. - Related Data Allergies Allergy/AdvReac Type Severity Reaction Status Date / Time No Known Allergies Allergy Verified 05/20/20 08:18 Home Meds: Home Meds Aspirin 81 mg PO DAILY tab.chew 10/01/19 [Rx] atorvaSTATin [Lipitor] 40 mg PO BEDTIME #30 tablet 10/01/19 [Rx] gemfibroziL [Lopid] 600 mg PO BIDAC #60 tablet 10/01/19 [Rx] atorvaSTATin [Lipitor] 40 mg PO 05/19/20 [History] Past Medical History - Past Health History Medical/Surgical History: Denies Medical/Surgical History HEENT History: Reports: Impaired Vision, Other (See Below) Other HEENT History: wears glasses Cardiovascular History: Reports: High Cholesterol, Other (See Below), Prior Cardiac Arrest Other Cardiovascular History: Cardiac arrest 2017 Respiratory History: Reports: Bronchitis, Recurrent Gastrointestinal History: Reports: None Genitourinary History: Reports: None Musculoskeletal History: Reports: None Neurological History: Reports: Other (See Below) Other Neuro History: bells palsy bilateral face Psychiatric History: Reports: Anxiety, Depression, Panic Attack Endocrine/Metabolic History: Reports: Obesity/BMI 30+ Hematologic History: Reports: None Immunologic History: Reports: None Oncologic (Cancer) History: Reports: None Dermatologic History: Reports: None - Infectious Disease History Infectious Disease History: Reports: None - Past Surgical History Head Surgeries/Procedures: Reports: None HEENT Surgical History: Reports: None Cardiovascular Surgical History: Reports: None Respiratory Surgical History: Reports: None GI Surgical History: Reports: None Male Surgical History: Reports: None Endocrine Surgical History: Reports: None Neurological Surgical History: Reports: None Musculoskeletal Surgical History: Reports: None Oncologic Surgical History: Reports: None Dermatological Surgical History: Reports: None Social & Family History - Family History Family Medical History: No Pertinent Family History - Caffeine Use Caffeine Use: Reports: None ED ROS GENERAL - Review of Systems Review Of Systems: See Below ED EXAM, GENERAL - Physical Exam Exam: See Below #1 Interpretation EKG Interpretation Comments: EKG: As interpreted by ER physician: Camelia: Nonspecific ST-T wave abnormalities Normal axis No evidence of ST elevation IN N sinus tachycardia heart rate of 108 Course - Vital Signs Last Recorded V/S: Last Vital Signs Temp 97.9 F 08/25/20 21:37 Pulse 121 H 08/25/20 21:37 Resp 16 08/25/20 21:37 BP 165/112 H 08/25/20 21:37 Pulse Ox 99 08/25/20 21:37 - Orders/Labs/Meds Orders: Active Orders 24 hr Category Date Time Status EKG Documentation Completion [RC] AM Care 08/25/20 21:39 Active Chest 1V Frontal [CR] Stat Exams 08/25/20 21:39 Taken COMPREHENSIVE METABOLIC PN,CMP [CHEM] Stat Lab 08/25/20 21:35 Received TROPONIN I [CHEM] Stat Lab 08/25/20 21:35 Received TSH [CHEM] Stat Lab 08/25/20 21:35 Received Sodium Chloride 0.9% [Normal Saline] 1,000 ml Med 08/25/20 21:39 Active IV .Bolus Sodium Chloride 0.9% [Saline Flush] Med 08/25/20 21:39 Active 10 ml FLUSH ASDIRECTED PRN Sodium Chloride 0.9% [Saline Flush] Med 08/25/20 21:39 Active 2.5 ml FLUSH ASDIRECTED PRN Saline Lock Insert [OM.PC] Stat Oth 08/25/20 21:39 Ordered Medication Orders Sodium Chloride (Normal Saline) 1,000 mls @ 999 mls/hr IV .Bolus ONE Stop: 08/25/20 22:39 Last Admin: 08/25/20 21:44 Dose: 999 mls/hr Documented by: LIZMAC Sodium Chloride (Sodium Chloride 0.9% 10 Ml Syringe) 10 ml FLUSH ASDIRECTED PRN PRN Reason: Keep Vein Open Last Admin: 08/25/20 21:44 Dose: 10 ml Documented by: RLJ EntertainmentMAC Sodium Chloride (Sodium Chloride 0.9% 2.5 Ml Syringe) 2.5 ml FLUSH ASDIRECTED PRN PRN Reason: Keep Vein Open Last Admin: 08/25/20 21:44 Dose: 2.5 ml Documented by: HANNA Labs: Laboratory Tests 08/25/20 08/25/20 Range/Units 21:35 21:48 WBC 11.58 H (4.0-11.0) K/uL RBC 5.47 (4.50-5.90) M/uL Hgb 17.7 H (13.0-17.0) g/dL Hct 49.8 (38.0-50.0) % MCV 91.0 (80.0-98.0) fL MCH 32.4 H (27.0-32.0) pg MCHC 35.5 (31.0-37.0) g/dL RDW Std Deviation 41.7 (28.0-62.0) fl RDW Coeff of Ran 13 (11.0-15.0) % Plt Count 208 (150-400) K/uL MPV 12.50 H (7.40-12.00) fL Neut % (Auto) 51.5 (48.0-80.0) % Lymph % (Auto) 34.8 (16.0-40.0) % [place] % (Auto) 10.4 (0.0-15.0) % Eos % (Auto) 3.0 (0.0-7.0) % Baso % (Auto) 0.3 (0.0-1.5) % Neut # (Auto) 6.0 H (1.4-5.7) K/uL Lymph # (Auto) 4.0 H (0.6-2.4) K/uL [place] # (Auto) 1.2 H (0.0-0.8) K/uL Eos # (Auto) 0.4 (0.0-0.7) K/uL Baso # (Auto) 0.0 (0.0-0.1) K/uL Nucleated RBC % 0.0 /100WBC Nucleated RBCs # 0 K/uL D-Dimer, Quantitative < 0.19 (0.0-0.50) mg/L FEU Meds: Medications Generic Name Dose Route Start Last Admin Trade Name Freq PRN Reason Stop Dose Admin Sodium Chloride 1,000 mls @ 999 mls/hr 08/25/20 21:39 08/25/20 21:44 Normal Saline IV 08/25/20 22:39 999 mls/hr .Bolus ONE Administration Sodium Chloride 10 ml 08/25/20 21:39 08/25/20 21:44 Sodium Chloride 0.9% 10 Ml Syringe FLUSH 10 ml ASDIRECTED PRN Administration Keep Vein Open Sodium Chloride 2.5 ml 08/25/20 21:39 08/25/20 21:44 Sodium Chloride 0.9% 2.5 Ml Syringe FLUSH 2.5 ml ASDIRECTED PRN Administration Keep Vein Open Departure - Departure Time of Disposition: 22:26 Disposition: Home, Self-Care 01 Condition: Good Clinical Impression: Palpitations, Anxiety, Tachycardia, Hypertension Instructions: Sinus Tachycardia, Palpitations, [id number], Hypertension, Adult, [id number], Managing Anxiety, Adult Referrals: Ovidio Cohen MD [Primary Care Provider] - Additional Instructions: You were seen and evaluated in the ER today secondary to episodes of palpitations that you experienced after taking your Zoloft and Wellbutrin. Your blood tests, EKG, your x-rays have all been within normal limits. I would recommend that you hold off taking your Wellbutrin until your body gets accustomed to taking the Zoloft. Please talk to your doctor to make sure that she or he agrees with the current plan. Please go home and get plenty rest and drink plenty of liquids. Return to the ER if you develop any new or concerning symptoms. The following information is given to patients seen in the emergency department who are being discharged to home. This information is to outline your options for follow-up care. We provide all patients seen in our emergency department with a follow-up referral. The need for follow-up, as well as the timing and circumstances, are variable depending upon the specifics of your emergency department visit. If you don't have a primary care physician on staff, we will provide you with a referral. We always advise you to contact your personal physician following an emergency department visit to inform them of the circumstance of the visit and for follow-up with them and/or the need for any referrals to a consulting specialist. The emergency department will also refer you to a specialist when appropriate. This referral assures that you have the opportunity for follow-up care with a specialist. All of these measure are taken in an effort to provide you with optimal care, which includes your follow-up. Under all circumstances we always encourage you to contact your private physician who remains a resource for coordinating your care. When calling for follow-up care, please make the office aware that this follow-up is from your recent emergency room visit. If for any reason you are refused follow-up, please contact the [facility] Emergency Department at and asked to speak to the emergency department charge nurse. [facility] - [facility] [address] [place] [address] [facility] [address] [place] [address] Sepsis Event Note (ED) - Evaluation Sepsis Screening Result: No Definite Risk - Focused Exam Vital Signs: Vital Signs Temp Pulse Resp BP Pulse Ox 08/25/20 21:37 97.9 F 121 H 16 165/112 H 99 - My Orders Last 24 Hours: My Active Orders 08/25/20 21:35 COMPREHENSIVE METABOLIC PN,CMP [CHEM] Stat TROPONIN I [CHEM] Stat TSH [CHEM] Stat 08/25/20 21:39 EKG Documentation Completion [RC] AM Chest 1V Frontal [CR] Stat Sodium Chloride 0.9% [Normal Saline] 1,000 ml IV .Bolus Sodium Chloride 0.9% [Saline Flush] 10 ml FLUSH ASDIRECTED PRN Sodium Chloride 0.9% [Saline Flush] 2.5 ml FLUSH ASDIRECTED PRN Saline Lock Insert [OM.PC] Stat - Assessment/Plan Last 24 Hours: My Active Orders 08/25/20 21:35 COMPREHENSIVE METABOLIC PN,CMP [CHEM] Stat TROPONIN I [CHEM] Stat TSH [CHEM] Stat 08/25/20 21:39 EKG Documentation Completion [RC] AM Chest 1V Frontal [CR] Stat Sodium Chloride 0.9% [Normal Saline] 1,000 ml IV .Bolus Sodium Chloride 0.9% [Saline Flush] 10 ml FLUSH ASDIRECTED PRN Sodium Chloride 0.9% [Saline Flush] 2.5 ml FLUSH ASDIRECTED PRN Saline Lock Insert [OM.PC] Stat
[2020-08-25 22:42] VITALS: BP 151/100; PULSE 85
--- NOTE | 2020-08-25 23:06 | CR ---
INDICATION: Chest pain TECHNIQUE: Chest 1 view. COMPARISON: Chest x-ray 08/21/2020 FINDINGS: The heart is normal in size. The pulmonary vasculature is within normal limits. The lungs are clear. The bones are unremarkable. IMPRESSION: No acute process. Dictated by Neelima Angeles MD @ 08/25/2020 11:05:[address] Neelima Angeles @ Aug 25 2020 11:05PM
== END 2020-08-25 22:40 | disposition home or self-care (01) ==
LOC: MW.ED 21:26
DX: F41.9 Anxiety disorder, unspecified (principal); I10 Essential (primary) hypertension; E78.00 Pure hypercholesterolemia, unspecified; E66.9 Obesity, unspecified; Z68.32 Body mass index [BMI] 32.0-32.9, adult; Z79.82 Long term (current) use of aspirin; Z79.899 Other long term (current) drug therapy
CPT/HCPCS: 36415; 71045; 71045-26; 80053; 84443; 84484; 85025; 85379; 93005; 93010; 99284; 99285-25; J7030